=== PATIENT | female | born 1950 | race Caucasian/White ===

== ENCOUNTER → 2017-01-01 16:44 | Outpatient (CLI) | payer MEDICARE, OTHER ==
[2016-03-09 06:46] VITALS: BMI 28.8
[~2017-01-01 16:44] MED LIST: AMITIZA24 MCG PO; CARAFATE1 G/10 ML; CELEBREX200 MG PO; FISH OIL 1,0001 CA1; FOLATE0.4 MG; KLONOPIN1 MG PO; LEVOTHROID75 MCG; NEXIUM40 MG PO; PEPCID20 MG PO; PRAVACHOL40 MG PO; PROBIOTIC; SYNTHROID200 MC1; TREXALL7.5 MG; XANAX1 MG PO; ZOFRAN ODT4 MG/UDTAB; ZOLOFT20 MG/ML PO
== END | disposition home or self-care (01) ==
LOC: D.MAMMO 13:30
DX: Z12.31 Encounter for screening mammogram for malignant neoplasm of breast (principal)

== ENCOUNTER → 2018-12-07 19:31 | Outpatient (CLI) | payer MEDICARE, OTHER ==
[2016-03-09 06:46] VITALS: BMI 28.8
[~2018-12-07 19:31] MED LIST changes: +ACTEMRA INJ; +ALBUTEROL SULF8.5 GM INH; +BAYER CHEWABLE81 MG PO; +BREO ELLIPTA 21 EACH INH; +BYSTOLIC5 MG PO; +CRESTOR20 MG PO; +FLUTICASONE PRO16 GM NASAL; +OMNICEF300 MG PO; +PEPCID AC20 MG PO; -PEPCID20 MG PO; +PLAVIX75 MG PO; +PREDNISONE20 MG PO; +PREDNISONE5 MG PO; +PROBIOTIC250 MG PO; +PULMICORT0.5 MG/21 UPD; +SINGULAIR10 MG PO; +SYNTHROID88 MCG PO; +TESSALON PERLE100 MG PO; +Tessalon Perle PO; +ZITHROMAX250 MG PO
== END | disposition home or self-care (01) ==
LOC: D.MAMMO 14:00
PROVIDERS: ATTEND Family Medicine
DX: Z12.31 Encounter for screening mammogram for malignant neoplasm of breast (principal)

== ENCOUNTER 2018-12-10 09:15 | Outpatient (CLI) | payer MEDICARE, OTHER ==
[~2018-12-10] VITALS: Ht 162.6 cm; Wt 81.8 kg
--- NOTE | ~2018-12-10 | HEMODYNAMI ---
PATIENT:FLORENTIN PANTOJA MEDICAL RECORD: [id number] : 50 LOCATION:D.CAT ADMISSION DATE: 12/10/18 Generatedon:12/10/201812:49 Patient name: FLORENTIN PANTOJA Patient #: [id number] SSN: : 1950 Date of study: 12/10/2018 Page: Of Hemodynamic Procedure Report Patient Data Patient Demographics Procedure consent was obtained First Name: FLORENTIN Gender: Female Last Name: KIT : 1950 [facility] Initial: JACOB Age: 68 year(s) Patient #: [id number] Race: Unknown Additional ID: [id number] Contact details [address]: [address] [place] [address] State: [place] City: [place] Zip code: [address] Admission Admission Data Admission Date: 12/10/2018 Admission Time: 9:15 Admit Source: Other Procedure Procedure Types Cath Procedure Diagnostic Procedure LHC LHC w/Coronaries Sedation Charges Moderate Sedation up to 15 minutes PCI Procedure Coronary Stent Coronary Stent Initial x2 Procedure Description Procedure Date Procedure Date: 12/10/2018 Procedure Start Time: 12:28 Procedure End Time: 12:44 Procedure Staff Name Function Nathaniel Dennison MD Performing Physician Jesenia Camargo RT Monitor Khurram Ny RN Nurse Dayton Hyatt RT Scrub Procedure Data Cath Procedure Fluoroscopy Diagnostic fluoroscopy Total fluoroscopy Time: 5.8 time: 5.8 min min Diagnostic fluoroscopy Total fluoroscopy dose: 867 dose: 867 mGy mGy Contrast Material Contrast Material Type Amount (ml) Isovue 370 178 Entry Location Entry Primary Successful Side Size Upsize Upsize Entry Closure Christianson ccessful Closure Location (Fr) 1 (Fr) 2 (Fr) Remarks Device Remarks Radial Right 6 Fr Mechanical artery Short Compression Estimated blood loss: 5 ml Diagnostic catheters Device Type Used For End Catheter Placement DIAGNOSTIC [place] 110cm 5 Multi-vessel Fr catheter ([id number]) Angiography Procedure Complications No complications Procedure Medications Medication Administration Route Dosage 0.9% NaCl I.V. 100 ml/hr Oxygen etCO2 Nasal cannula 2 l/min Heparin Flush Bag added to field 2 bags (1000units/500ml NS) Lidocaine 2% added to field 20 Radial Cocktail added to field 1 syringe (Verapomil 2mg/Nitro 400mcg/Heparin 1500units) Versed I.V. 2 mg Fentanyl I.V. 100 mcg Versed I.V. 2 mg Fentanyl I.V. 100 mcg Radial Cocktail I.A. 1 syringe (Verapomil 2mg/Nitro 400mcg/Heparin 1500units) Versed I.V. 1 mg Heparin Bolus I.V. 4000 units Integrilin (Bolus I.V. 7.3 ml 2mg/ml) Integrilin (Bolus wasted 2.3 ml 2mg/ml) Plavix P.O. 600 mg Hemodynamics Rest Heart Rate: 83 (bpm) Pressure Samples Time Site Value (mmHg) Purpose Heart Use Rate(bpm) 12:31 LV 91/59,63 Snapshot 96 Snapshots Pre Cath Intra NCS Post Cath Vital Signs Time Heart Resp SPO2 etCO2 NIBP (mmHg) Rhythm Pain Sedation Rate (ipm) (%) (mmHg) Status Level (bpm) 12:13:43 84 20 96 45.7 151/75(107) NSR 0 (11) 10(A) , No pain 12:17:55 79 12 94 32.9 136/77(109) NSR 0 (11) 10(A) , No pain 12:22:05 83 14 96 44.9 127/83(117) NSR 0 (11) 10(A) , No pain 12:26:18 84 12 96 47.2 141/81(110) NSR 0 (11) 10(A) , No pain 12:30:36 89 15 97 46.4 141/82(117) NSR 0 (11) 10(A) , No pain 12:34:46 88 19 93 37.4 120/75(100) NSR 0 (11) 9(A) , No pain 12:38:56 91 18 96 26.2 140/80(113) NSR 0 (11) 9(A) , No pain 12:43:10 99 12 96 29.9 160/99(125) NSR 0 (11) 10(A) , No pain Medications Time Medication Route Dose Verified Delivered Reason Not es Effectiveness by by 12:11:55 0.9% NaCl I.V. 100 Khurram Khurram Per physician ml/hr Anant Ny RN RN 12:12:06 Oxygen etCO2 2 l/min Khurram Khurram for low 02 sats Nasal Lorigan Anant cannula RN RN 12:12:19 Heparin Flush added 2 bags Khurram Khurram used for Bag to Lorigan Lorigan procedure (1000units/500ml field RN RN NS) 12:12:29 Lidocaine 2% added 20ml Khurram Khurram for local to vial Lorigan Lorleticia anesthetic field RN RN 12:12:39 Radial Cocktail added 1 Khurram Khurram used for (Verapomil to syringe Lorigan Lorigan procedure 2mg/Nitro field RN RN 400mcg/Heparin 1500units) 12:27:50 Versed I.V. 2 mg Khurram Khurram for sedation Anant Ny RN RN 12:27:58 Fentanyl I.V. 100 mcg Khurram Khurram for sedation Anant Ny RN RN 12:29:22 Versed I.V. 2 mg Khurram Khurram for sedation Anant Ny RN RN 12:29:27 Fentanyl I.V. 100 mcg Khurram Khurram for sedation Anant Ny RN RN 12:29:58 Radial Cocktail I.A. 1 Khurram Nathaniel for (Verapomil syringe Anant Dennison MD vasodilation 2mg/Nitro RN 400mcg/Heparin 1500units) 12:31:16 Versed I.V. 1 mg Khurram Khurram for sedation Anant Ny RN RN 12:36:51 Heparin Bolus I.V. 4000 Khurram Khurram for units Lorleticia Ny anticoagulation RN RN 12:37:07 Integrilin I.V. 7.3 ml Khurram Khurram for (Bolus 2mg/ml) Anant Ny antiplatelet RN RN therapy 12:37:17 Integrilin wasted 2.3 ml Khurram Khurram to sharp's (Bolus 2mg/ml) Anant Ny RN RN 12:48:16 Plavix P.O. 600 mg Khurram Khurram for Anant Ny antiplatelet RN RN therapy Procedure Log Time Note 11:53:55 Admit Source: Other 11:55:01 Diagnostic Cath status Elective 11:55:03 Dayton Hyatt RT(R) sent for patient. Start room use. 11:55:04 Time tracking: Regular hours (M-F 7:00 - 5:00) 11:55:10 Plan of Care:Hemodynamics will remain stable., Cardiac rhythm will remain stable., Comfort level will be maintained., Respiratory function will remain adequate., Patient/ family verbilizes understanding of procedure., Procedure tolerated without complication., Recovers from procedure without complications.. 12:11:55 0.9% NaCl 100 ml/hr I.V. was administered by Khurram Ny RN; Per physician; 12:12:06 Oxygen 2 l/min etCO2 Nasal cannula was administered by Khurram Ny RN; for low 02 sats; 12:12:09 Patient received from Pre/Post Procedure Room to CCL 1 Alert and oriented. Tansferred to table in Supine position. 12:12:19 Heparin Flush Bag (1000units/500ml NS) 2 bags added to field was administered by Khurram Ny RN; used for procedure; 12:12:22 Warm blankets applied, and brenton hugger turned on for patient comfort. 12:12:22 Correct patient and procedure confirmed by team. 12:12:23 Signed procedure consent form obtained from patient. 12:12:24 ECG and BP/O2 sat monitors applied to patient. 12:12:29 Lidocaine 2% 20ml vial added to field was administered by Khurram Ny RN; for local anesthetic; 12:12:30 Vital chart was started 12:12:31 Baseline sample Acquired. 12:12:36 Rhythm: sinus rhythm 12:12:38 Full Disclosure recording started 12:12:39 Radial Cocktail (Verapomil 2mg/Nitro 400mcg/Heparin 1500units) 1 syringe added to field was administered by Khurram Ny RN; used for procedure; 12:12:47 H&P Date Dictated: 12/10/2018 Within 30 days and on chart., H&P Addendum completed by physician on day of procedure. (MUST COMPLETE FOR ALL OUTPATIENTS). 12:12:49 Pre-procedure instructions explained to patient. 12:12:50 Pre-op teaching completed and patient verbalized understanding. 12:12:51 Family in patients room. 12:12:53 Patient NPO since Midnight. 12:12:55 Is the patient allergic to Iodine/contrast media? No. 12:12:56 Was the patient premedicated? No 12:12:57 Is patient on blood thinner?No 12:12:58 Patient diabetic? No. 12:13:01 Previous problem with sedation/anesthesia? No ? 12:13:02 Snore? Yes 12:13:03 Sleep apnea? Yes 12:13:05 Deviated septum? No 12:13:05 Opens mouth fully? Yes 12:13:06 Sticks out tongue? Yes 12:13:08 Airway obstruction? No ? 12:13:11 Dentures? No ? 12:13:16 Pre procedure: right dorsailis pedis pulse 2+ Normal; easily identifiable; not easily obliterated 12:13:19 Pre procedure: left dorsailis pedis pulse 2+ Normal; easily identifiable; not easily obliterated 12:13:22 Patient pain scale 0/10 \. 12:13:30 IV patent on arrival in left forearm with 0.9% NaCl at [facility]. 12:17:43 Lab results completed and on chart. 12:17:51 Right Radial & Right Groin area was prepped with chlora-prep and draped in sterile fashion 12:17:52 Alarms reviewed by R. N. 12:17:53 Sharps counted by scrub and verified by R.N. 12:19:13 Physician paged 12:23:10 Zero performed for pressure channel P1 12:24:48 Physician arrived 12:24:48 --------ALL STOP TIME OUT------ 12:24:49 Final Timeout: patient, procedure, and site verified with staff and physician. All members of the team are in agreement. 12:24:52 Right Radial & Right Groin site verified by team. 12:25:04 Maximum allowable Isovue 370 dose 300ml. Physician notified. (300ml for normal creatinines. For patients with creatinine of 1.7 or higher multiply weight(kg) x 5 divided by creatinine.) 12:25:08 Fire Safety Assessment: A--An alcohol-based skin anteseptic being used preoperatively., C--Open oxygen or nitrous oxide is being used., D--An ESU, laser, or fiber-optic light is being used. 12:25:12 Physical assessment completed. ASA score P 2 - A patient with mild systemic disease as per Nathaniel Dennison MD. 12:25:17 Sedation plan: IV Moderate Sedation Medication:Versed, Fentanyl 12:25:28 Use device set Radial Dx or PCI 12:25:29 ACIST Syringe (72813) opened to sterile field. 12:25: Medline Cath Pack ([id number]) opened to sterile field. 12:25:30 Bag Decanter (2002) opened to sterile field. 12:25:30 DIAGNOSTIC WIRE .035 260cm J wire (142689) opened to sterile field. 12:25:30 ACIST Hand Control (67333) opened to sterile field. 12:25:31 ACIST Manifold (97969) opened to sterile field. 12:25: Tegaderm 4 x 4 (1626W) opened to sterile field. 12:25:32 MBrace Wrist Support (483716371) opened to sterile field. 12::33 SHEATH 6FR Slender (59-6665) opened to sterile field. 12:27:50 Versed 2 mg I.V. was administered by Khurram Ny RN; for sedation; 12::58 Fentanyl 100 mcg I.V. was administered by Khurram Ny RN; for sedation; 12:28:00 Procedure started. 12::41 Local anesthetic to right radial artery with Lidocaine 2% by Nathaniel Dennison MD.INITIAL ACCESS ONLY 12:29:21 A 6 Fr Short sheath was inserted into the Right Radial artery 12::22 Versed 2 mg I.V. was administered by Khurram Ny RN; for sedation; 12::27 Fentanyl 100 mcg I.V. was administered by Khurram Ny RN; for sedation; 12::58 Radial Cocktail (Verapomil 2mg/Nitro 400mcg/Heparin 1500units) 1 syringe I.A. was administered by Nathaniel Dennison MD; for vasodilation; 12:30:20 A DIAGNOSTIC [place] 110cm 5 Fr catheter (717647) was advanced over the wire and used for Multi-vessel Angiography. 12:30:49 LV hemodynamics recorded. 12:30:50 LV gram done using MARIE 12::52 Injector settings: Ml/sec: 5, Volume: 15, 12:31:14 EF : 60 % 12:31:16 Versed 1 mg I.V. was administered by Khurram Ny RN; for sedation; 12::41 LCA angiography performed. 12::44 Injector settings: Ml/sec: 3, Volume: 6, 12:33:04 RCA angiography performed. 12:33:10 Injector settings: Ml/sec: 3, Volume: 6, 12:33:44 Catheter removed. 12:34:10 GUIDE 6FR XBLAD 3.5 catheter (50548988) opened to sterile field. 12:34:12 [place] IVUS Catheter (04598N) opened to sterile field. 12:34:13 CHOICE PT Extra Support 182cm wire (7706769S7) opened to sterile field. 12:34:13 INFLATOR Merit BasixCompak (VK0302) opened to sterile field. 12:34:21 Proceeding to intervention. 12:34:28 6 Fr xblad 3.5 guide catheter was inserted over the wire 12:34:36 choice pt wire advanced. 12:35:51 Wire advanced across lesion. 12:35:53 IVUS catheter advanced over wire. 12:36:51 Heparin Bolus 4000 units I.V. was administered by Khurram Ny RN; for anticoagulation; 12:37:07 Integrilin (Bolus 2mg/ml) 7.3 ml I.V. was administered by Khurram Ny RN; for antiplatelet therapy; 12:37:17 Integrilin (Bolus 2mg/ml) 2.3 ml wasted was administered by Khurram Ny RN; to sharp's; 12:39:09 IVUS pass to LAD lesion performed. 12:39:10 IVUS catheter removed over wire. 12:39:41 Place stent Inflation Number: 1 A INTEGRITY RX 3.0 x 30 stent ([id number]) was prepped and advanced across the Mid LAD. The stent was deployed at 13 ASAD for 0:10 (min:sec). 12:40:43 Stent catheter was removed intact over wire. 12:40:52 Wire redirected to lcx. 12:42:13 Place stent Inflation Number: 1 A INTEGRITY RX 3.0 x 15 stent ([id number]) was prepped and advanced across the Mid CX. The stent was deployed at 13 ASAD for 0:10 (min:sec). 12:42:42 Stent catheter was removed intact over wire. 12:42:42 Wire removed. 12:42:43 Guide catheter removed. 12:42:47 TR BAND Standard ([id number]) opened to sterile field. 12:43:12 Sheath removed intact; hemostasis achieved with Mechanical Compression to the Right Radial artery. 12:43:13 Procedure ended.(Physican Out) 12:43:49 Fluoroscopy time 05.80 minutes. 12:43:53 Flurop Dose total: 867 12:43:53 Fluoroscopy dose: 867 mGy 12:44:02 Contrast amount:Isovue 370 178ml. 12:44:04 Sharps counted by scrub and verified by R.N. 12:44:06 TR band inflated with 10cc of air. 12:44:08 Insertion/operative site no bleeding no hematoma. 12:44:11 Post right radial artery:stable 12:44:12 Post Procedure Pulses reassessed and unchanged 12:44:15 Post procedure rhythm: unchanged. 12:44:18 Estimated blood loss: 5 ml 12:44:20 Post procedure instruction explained to patient.Patient verbalizes understanding. 12:44:21 Patient needs reinforcement of post procedure teaching. 12:44:34 Procedure type changed to Cath procedure, Diagnostic procedure, LHC, LHC w/Coronaries, Sedation Charges, Moderate Sedation up to 15 minutes, PCI procedure, Coronary Stent, Coronary Stent Initial x2 12:44:34 Procedure and supply charges have been captured, reviewed, submitted and are correct. 12:44:39 Procedure Complication : No complications 12:44:41 Vital chart was stopped 12:44:43 See physician's report for complete and final results. 12:44:46 Report given to Pre/Post Procedure Room. 12:44:49 Patient transfered to Pre/Post Procedure Room with Stretcher. 12:44:51 Procedure ended. 12:44:51 Full Disclosure recording stopped 12:44:59 ACC-PCI Only Patient was given prescriptions, or instructed by Nathaniel Dennison MD to start/continue the following medications upon discharge: Plavix 12:45:00 End room use (Document Last) 12:48:16 Plavix 600 mg P.O. was administered by Khurram Ny RN; for antiplatelet therapy; Intervention Summary Intervention Notes Time ActionType Lesion and Equipment Action# Pressure Duration Attributes Used 12:39:41 Place stent Mid LAD INTEGRITY RX 1 13 00:10 3.0 x 30 stent ([id number]) 12:42:13 Place stent Mid CX INTEGRITY RX 1 13 00:10 3.0 x 15 stent ([id number]) Device Usage Item Name Manufacture Quantity Catalog Number Hospital Part Current Mini mal Lot# / Charge Number Stock Stock Serial# Code ACIST Acist 1 11719 006040 810210 903509 20 Syringe Medical (13885) Systems Inc Medline Cath Medline 1 [id number] 648594 53256 806781 5 Pack ([id number]) Bag Decanter Microtek 1 2001S 866073 01527 459253 5 (2001S) Medical Inc. DIAGNOSTIC St [place] 1 526286 492608 760365 362828 30 WIRE .035 260cm J wire (725843) ACIST Hand Acist 1 79446 107442 198771 605106 5 Control Medical (00529) Systems Inc ACIST Acist 1 46765 191224 351484 561387 5 Manifold Medical (31598) Systems Inc Tegaderm 4 x 3M 1 1626W 946853 242545 535571 5 4 (1626W) MBrace Wrist Advanced 1 140-0250-00 765714 44345 394929 5 Support Vascular (044094787) Dynamics SHEATH 6FR Terumo 1 [id number] 609767 528875 209678 5 Slender (80-1060) DIAGNOSTIC Terumo 1 40-1623 971368 889407 389864 5 [place] 110cm 5 Fr catheter (632195) GUIDE 6FR Cardinal 1 [id number] 650821 573537 199101 10 XBLAD 3.5 Health catheter (21962722) [place] 1 65217Y 388688 810148 159012 8 [place] IVUS Catheter (51343W) CHOICE PT [place] 1 [id number] 616891 829712 177167 5 Extra Scientific Support 182cm wire (2390613Z8) INFLATOR Merit 1 TE6996 502495 172372 245082 15 Cortexa Medical BasixCompak (SX2384) INTEGRITY RX Medtronic 1 [id number] 223406 517844 168867 5 [id number] 3.0 x 30 stent ([id number]) INTEGRITY RX Medtronic 1 [id number] 961239 783077 208346 5 [id number] 3.0 x 15 stent ([id number]) TR BAND Terumo 1 [id number] 809977 838515 234417 40 Standard ([id number]) Signature Audit [place] Stage Time Signature Unsigned Intra-Procedure 12/10/2018 Jesenia Camargo 12:49:55 PM RT(R) Signatures Monitor : Jesenia Camargo RT Signature : Date : Time : [id number] [place] [address]
[~2018-12-10 09:15] MED LIST changes: -ACTEMRA INJ; -ALBUTEROL SULF8.5 GM INH; -BAYER CHEWABLE81 MG PO; -BREO ELLIPTA 21 EACH INH; -BYSTOLIC5 MG PO; -CRESTOR20 MG PO; -FLUTICASONE PRO16 GM NASAL; -OMNICEF300 MG PO; -PLAVIX75 MG PO; -PREDNISONE20 MG PO; -PREDNISONE5 MG PO; -PROBIOTIC250 MG PO; -PULMICORT0.5 MG/21 UPD; -SINGULAIR10 MG PO; -SYNTHROID88 MCG PO; -TESSALON PERLE100 MG PO; -Tessalon Perle PO; -ZITHROMAX250 MG PO
[2018-12-10] MEDS ORDERED: SYNTHROID88 MCG PO (09:37)
[2018-12-10] MEDS ORDERED: CRESTOR20 MG PO (09:38)
[2018-12-10] MEDS ORDERED: PREDNISONE5 MG PO (09:39)
[2018-12-10] MEDS ORDERED: ACTEMRA INJ (09:42)
[2018-12-10] MEDS ORDERED: PROBIOTIC250 MG PO (09:43)
[2018-12-10 09:46] VITALS: BP 189/90; Ht 162.6 cm; Wt 81.8 kg
[2018-12-10 10:11] LABS: CALC OSMOLALITY 289 mosm/kg (275-300); CALCIUM 8.7 mg/dL (8.5-10.1); CARBON DIOXIDE 28.9 mmol/L (21.0-32.0); CHLORIDE - SERUM 106 mmol/L (98-107); CREATININE - SERUM 0.7 mg/dL (0.6-1.3); GLUCOSE 159 mg/dL (74-106); POTASSIUM - SERUM 3.9 mmol/L (3.5-5.1); SODIUM 143 mmol/L (136-145); UREA NITROGEN 17 mg/dL (7-18); eGFR NON AFRICAN AMERICAN 88 mL/min (90-120)
[2018-12-10 10:13] LABS: BASOPHILS 0.2 % (0-2); EOSINOPHILS 1.5 % (0-7); HEMATOCRIT 43.5 % (36.0-48.0); HEMOGLOBIN 14.7 g/dL (12-16); IMMATURE GRANULOCYTES 0.2 % (0-5); LYMPHOCYTES 12.9 % (15-50); MCH 29.8 pg (26.0-34.0); MCHC 33.8 g/dL (31.0-37.0); MCV 88.2 fL (80.0-100.0); MEAN PLATELET VOLUME 9.8 fL (7.4-10.4); MONOCYTES 3.1 % (2-11); NEUTROPHILS 82.1 % (40-80); RBC 4.93 10x6/uL (4.00-5.40); RDW 14.4 % (11.5-14.5)
[2018-12-10 10:16] LABS: PLATELET COUNT 126 10x3/uL (130-400)
--- NOTE | 2018-12-10 13:26 | NUR ---
PT SLEEPING INTERMITTENTLY, HAS RECEIVED CLONIDINE FOR ELEVATED BP, DECLINES NORCO FOR HEADACHE. DENIES ANY CHANGE IN CHEST DISCOMFORT. TR BAND IS CDI, FINGERS WARM AND CAP REFILL IS BRISK. FAMILY AT BEDSIDE.
[2018-12-10] MEDS ORDERED: BAYER CHEWABLE81 MG PO (13:34)
[2018-12-10] MEDS ORDERED: PLAVIX75 MG PO (13:34)
--- NOTE | 2018-12-10 13:47 | NUR ---
PT AWAKE, STATES PAIN DECREASED. BP IS 150/75, HR IS 92. RESP WITH EASE ON O2 AT 2LPM VIA NC. TR BAND IS CDI, FINGERS WARM AND CAP REFILL IS BRISK. PT REQUESTS SANDWICH AND THIS SERVED. YUNG PO FLUIDS WITH NO NAUSEA.
--- NOTE | 2018-12-10 14:08 | NUR ---
PT SITTING UP IN BED, YUNG SANDWICH AND STATES PAIN RESOLVED. TR BAND IS CDI, FINGERS WARM AND CAP REFILL IS BRISK. VSS, CALL LIGHT IN REACH, FAMILY AT BEDSIDE.
--- NOTE | 2018-12-10 14:40 | NUR ---
PT DENIES ANY C/O. TR BAND IS CDI TO RIGHT WRIST, CAP REFILL IS BRISK, FINGERS WARM. PT DENIES ANY NV DEFICIT. NSR, DENIES ANY C/O CHEST PAIN. IS SLEEPING INTERMITTENTLY, RESP WITH EASE.
--- NOTE | 2018-12-10 15:08 | NUR ---
PT SLEEPING, TR BAND CDI, FINGERS WARM AND CAP REFILL IS BRISK. FAMILY AT BEDSIDE.
--- NOTE | 2018-12-10 15:13 | OP ---
PATIENT NAME: FLORENTIN PANTOJA MEDICAL RECORD: [id number] :[birth year] LOCATION:D.CAT ADMISSION DATE: SURGEON: MELONY SINCLAIR MD DATE OF OPERATION: 12/10/2018 PROCEDURES: 1. PTCA stent left circumflex. 2. PTCA stent LAD. 3. Intravascular ultrasound. 4. Left heart catheterization. 5. Selective coronary angiography. 6. Left ventriculogram. INDICATION: Angina and coronary artery disease. PROCEDURE IN DETAIL: After informed consent was obtained and after a detailed description of risks, benefits as well as alternative therapies, the patient elected to proceed with angiogram and angioplasty. The right radial area was prepped and draped in normal sterile fashion. Right radial artery was cannulated via modified Seldinger technique with placement of 6-Bulgarian sheath. All catheters exchanged through this sheath. FINDINGS: The left ventriculogram was performed in standard 30-degree MARIE view reveals preserved cardiac wall motion, ejection fraction estimated at 55% to 60%. SELECTIVE CORONARY ANGIOGRAPHY: 1. Left main showed no significant angiographic disease. 2. Left anterior descending has greater than 70% stenosis confirmed by intravascular ultrasound to the mid vessel. 3. Left circumflex has 80% stenosis in the mid vessel. 4. Right coronary artery has moderate irregularities, but no flow-limiting stenosis. PTCA STENT OF THE LAD: The stent used was a 3.0 x 30 mm Integrity. Result was 0% residual stenosis. PTCA STENT OF THE LEFT CIRCUMFLEX: The stent used 3.0 x 15 mm Integrity. Result was 0% residual stenosis. OVERALL IMPRESSION: Successful percutaneous transluminal coronary angioplasty stent of the left anterior descending and left circumflex, both going from 80% initial stenosis to 0% residual. TRANSINT:[id number] Voice Confirmation ID: [id number] DOCUMENT ID: [id number] MELONY SINCLAIR MD at 1513 CC: [id number] DICTATION DATE: 12/10/18 1251 BOATBUILDER APPRENTICE WOOD: 12/10/18 1343 REG [facility] [address] [place] [address]
--- NOTE | 2018-12-10 15:29 | NUR ---
ASSISTED PT ONTO THE BEDPAN, PT VOIDED QS. TR BAND IS CDI, FINGERS WARM AND CAP REFILL IS BRISK, FAMILY AT BEDSIDE,. VSS.
--- NOTE | 2018-12-10 16:14 | NUR ---
WEANED 3 CC OF AIR FROM TR BAND WITH NO BLEEDING NOTED.
--- NOTE | 2018-12-10 16:30 | NUR ---
4 CC OF AIR WEANED FROM TR BAND WITH NO BLEEDING NOTED. FINGERS WARM AND CAP REFILL IS BRISK. DENIES ANY NV DEFICIT TO HAND.
--- NOTE | 2018-12-10 16:54 | NUR ---
ALL REMAINING AIR HAS BEEN WEANED FROM TR BAND WITH NO BLEEDING NOTED. FINGERS WARM AND CAP REFILL IS BRISK. PT IS ALERT AND DENIES ANY C/O. DC INSTRUCTIONS REVIEWED WITH PT AND WHO VERBALIZE UNDERSTANDING. BOTH VERBALIZE UNDERSTANDING TO START PLAVIX TOMORROW AND PRESCRIPTION TO PATIENT. PT DRESSING FOR DC TO HOME WITH ASSIST.
--- NOTE | 2018-12-10 17:07 | NUR ---
PT HAS DRESSED FOR DC TO HOME WITH ASSIST. 2X2 AND TEGADERM ARE CDI TO RIGHT WRIST, NO BLEEDING OR HEMATOMA NOTED. FINGERS WARM AND PULSES PALPABLE. PT IS ALERT AND DENIES ANY C/O. PT ESCORTED TO PRIVATE AUTO VIA WC BY NURSE WITH DRIVING HER HOME.
== END 2018-12-10 17:05 | disposition home or self-care (01) ==
LOC: D.CATH 09:15
PROVIDERS: ATTEND Internal Medicine Interventional Cardiology
DX: I25.119 Atherosclerotic heart disease of native coronary artery with unspecified angina pectoris (principal); Z01.812 Encounter for preprocedural laboratory examination

== ENCOUNTER 2018-12-20 21:36 | Inpatient (IN) | payer MEDICARE, OTHER ==
[~2018-12-20] VITALS: Ht 162.6 cm; Wt 82.3 kg
--- NOTE | ~2018-12-20 | EC ---
PATIENT:FLORENTIN PANTOJA DATE OF SERVICE: 12/21/18 SEX: F MEDICAL RECORD: [id number] DATE OF : [birth year] LOCATION:D.M3 D.120 AGE OF PATIENT: 68 ADMISSION DATE: 12/21/18 REFERRING PHYSICIAN: INTERPRETING PHYSICIAN: MELONY DENNISON MD ECHOCARDIOGRAM REPORT ECHO CHARGES 4 ECHO COMPLETE Date: 12/22/18 CLINICAL DIAGNOSIS: SOB ECHOCARDIOGRAPHIC MEASUREMENTS (adult normal given) AC root (d.<3.7cm) 3.0 cm LV Septum d (<1.2 cm> 1.5 cm Valve Excursion 2.0 cm LV Septum (systole) 2.2 cm Left Atria (s.<4.0cm> 3.6 cm LVPW d(<1.2cm) 1.4 cm RV (d.<2.3cm) 2.4 cm LVPW (sytole) 1.8 cm LV diastole(<5.6CM) 4.1 cm MV E-F(>70mm/sec) cm LV systole 1.8 cm LVOT Diameter 1.9 cm MV exc.(>10mm) cm Est.ejection fraction (50-75%) % DOPPLER: LVIT cm/sec A 115 cm/sec E 126 cm/sec LA cm/sec RVSP 25.1 mmHg LVOT 139 cm/sec AOP1/2T m/s Asc. Ao 147 cm/sec RVOT 78.0 cm/sec RA cm/sec PA 95.0 cm/sec AV Gradient Peak 8.7 mmHg AV Mean 3.9 mmHg AV Area 2.4 cm MV Gradient Peak 7.3 mmHg MV Mean 3.1 mmHg MV Area cm COMMENTS: Turn Down Man: 1 TANIKA MCCLELLANDOE Fraud Analyst: 1 Dr. Dennison TAPE# PACS Pericardial Effusion N DATE OF SERVICE: 12/22/2018 PROCEDURE: Echocardiogram. FINDINGS: 1. Left ventricular chamber size is within normal limits. Left ventricular systolic function is normal. Overall ejection fraction estimated at 65%. 2. Left atrium, right atrium, and right ventricle chamber sizes are within normal limits. 3. Valvular structures have normal structure and motion. ECHOCARDIOGRAM REPORT [id number] FLORENTIN PANTOJA 4. Doppler interrogation reveals no significant valvular insufficiency or stenosis. Pulmonary systolic pressure is estimated at 25 mmHg. 5. No evidence of pericardial effusion or left ventricular thrombus. TRANSINT:[id number] Voice Confirmation ID: [id number] DOCUMENT ID: [id number] MELONY DENNISON MD CC: [id number] DICTATION DATE: 12/23/18843 GAS LINE INSTALLER SUPERVISOR: 12/23/18 09 ADM IN [address] [place] [address]
--- NOTE | ~2018-12-20 | CN ---
PATIENT NAME:FLORENTIN CLARK MEDICAL RECORD: [id number] : 50 LOCATION:D.M3 D.1201 ADMIT DATE: 12/21/18 ACCOUNT: [id number] CONSULTING PHYSICIAN: MELONY SINCLAIR MD REFERRING PHYSICIAN: [place] MD DATE OF CONSULTATION: 12/21/2018 DIAGNOSES. 1. Elevated troponin. 2. Coronary artery disease. 3. Previous PTCA stent. 4. Shortness of breath, dyspnea on exertion. 5. Pneumonia. 6. Hypertension. 7. Tachycardia. 8. Hyperlipidemia. HISTORY OF PRESENT ILLNESS: Mrs. Clark presents with shortness of breath and dyspnea on exertion, diagnosed with pneumonia. Troponin is mildly elevated. Two weeks ago, she did undergo PTCA stent of LAD and circumflex. She has had no recurrent anginal symptomatology. Her EKG is with no ST-T changes. She is quite tachycardic with heart rates in the 100-110 range. This is sinus tachycardia. Her systolic blood pressures in the 130 range. She is not on any AV blocking medications. PHYSICAL EXAMINATION: GENERAL APPEARANCE: Well-nourished, well-developed, appears stated age. Level of distress, comfortable. PSYCHIATRIC: Mental status, alert, normal affect. Orientation, oriented to time, place and person. EYES: Lids and conjunctiva, noninjected. No discharge, no pallor. ENT: Lips, teeth, gums, normal dentition. Oropharynx, no cyanosis, no pallor. NECK: Carotid arteries, bilateral normal upstroke, no bruits, no thrills. JUGULAR VEINS: No jugular venous pressure or distention. CERVICAL LYMPH NODES: Nontender, nonenlarged. THYROID: Not enlarged. Nontender. No nodules. LUNGS: Respiratory effort, unlabored. CHEST: Normal curvature. No thoracic deformity. No chest wall tenderness. Percussion, resonant. Auscultation, clear. No wheezes, no rales, no rhonchi. CARDIOVASCULAR: Precordial exam, nondisplaced. No heaves or pericardial thrills. Rate and rhythm, regular. Heart sounds, normal S1, normal S2. No S3, no gallop, no rub. Systolic murmur, not heard. Diastolic murmur, not heard. EXTREMITIES: No cyanosis, no edema. Peripheral pulses, full and equal in all extremities, except as noted. No bruits appreciated. ABDOMEN: Soft, nondistended. Normal aorta. No bruit. Nontender. No masses. Liver, nontender, no hepatomegaly. Spleen, nontender, no splenomegaly. MUSCULOSKELETAL: No joint tenderness. No joint swelling. No erythema. NEUROLOGICAL: Normal gait, normal strength, normal tone. SKIN: Warm and dry. OVERALL IMPRESSION: Elevated troponin secondary to demand ischemia from the tachycardia and shortness of breath. We will start Bystolic 5 mg b.i.d. No other cardiac workup treatment is necessary. TRANSINT:[id number] Voice Confirmation ID: [id number] DOCUMENT ID: [id number] CONSULT REPORT [id number] FLORENTIN CLARK JEFFREY MD CC: [id number] DICTATION DATE: 12/21/18 1545 CYLINDER PRESS OPERATOR HELPER: 12/21/18 1655 ADM IN [place] [id number] [place] [id number]
[~2018-12-20 21:36] MED LIST changes: +ACTEMRA INJ; +BAYER CHEWABLE81 MG PO; +CRESTOR20 MG PO; +PLAVIX75 MG PO; +PREDNISONE5 MG PO; +PROBIOTIC250 MG PO; +SYNTHROID88 MCG PO
--- NOTE | 2018-12-20 23:11 | NUR ---
PT O2 SAT 87% ON RA, PT PLACED ON 2L. O2 SAT 97% ON 2L.
[2018-12-20 23:21] LABS: BASOPHILS 0.2 % (0-2); HEMATOCRIT 40.1 % (36.0-48.0); HEMOGLOBIN 13.8 g/dL (12-16); IMMATURE GRANULOCYTES 0.4 % (0-5); INR 0.96 (0.85-1.17); LYMPHOCYTES 10.6 % (15-50); MCH 29.9 pg (26.0-34.0); MCHC 34.4 g/dL (31.0-37.0); MEAN PLATELET VOLUME 9.7 fL (7.4-10.4); MONOCYTES 3.8 % (2-11); PROTIME 12.3 SECONDS (11.6-15.0); RBC 4.61 10x6/uL (4.00-5.40); RDW 14.9 % (11.5-14.5); WBC 8.1 10x3/uL (4.8-10.8)
[2018-12-20 23:24] LABS: ALBUMIN 3.7 g/dL (3.4-5.0); ALKALINE PHOSPHATASE 69 U/L (46-116); ALT (SGPT) 16 U/L (10-68); BILIRUBIN - TOTAL 2.39 mg/dL (0.2-1.3); CALC OSMOLALITY 284 mosm/kg (275-300); CALCIUM 8.5 mg/dL (8.5-10.1); CARBON DIOXIDE 29.3 mmol/L (21.0-32.0); CHLORIDE - SERUM 104 mmol/L (98-107); CREATININE - SERUM 0.7 mg/dL (0.6-1.3); GLUCOSE 139 mg/dL (74-106); POTASSIUM - SERUM 3.4 mmol/L (3.5-5.1); PROTEIN - SERUM 6.8 g/dL (6.4-8.2); SODIUM 142 mmol/L (136-145); UREA NITROGEN 12 mg/dL (7-18); eGFR NON AFRICAN AMERICAN 88 mL/min (90-120)
[2018-12-20 23:25] LABS: PLATELET COUNT 93 10x3/uL (130-400)
[2018-12-20 23:39] LABS: AMYLASE - SERUM 47 U/L (25-115); CKMB 1.3 U/L (0.0-3.6); CREATINE KINASE 80 UL (21-215); LIPASE 120 U/L (73-393); PRO BNP 62 pg/mL (0-125)
[2018-12-20 23:43] LABS: PLATELET ESTIMATE DECREASED
[2018-12-20 23:51] LABS: TROPONIN-I 0.072 ng/mL (0.000-0.060)
[2018-12-21] VITALS (12 sets, daily range): BP systolic 124–185; BP diastolic 55–83; Ht 162.6 cm; Wt 82.3 kg
--- NOTE | 2018-12-21 00:39 | NUR ---
PT RESTING ON BED, FAMILY AT BEDSIDE. O2 SAT 96% ON 2L.
--- NOTE | 2018-12-21 01:05 | NUR ---
PT ASSISTED WITH BEDPAN. PT URINATED APPROX 250ML OF CLEAR, YELLOW URINE. PT SPOUSE AT BEDSIDE.
--- NOTE | 2018-12-21 02:20 | NUR ---
PT PROVIDED SANDWICH BOX PER REQUEST.
--- NOTE | 2018-12-21 02:26 | NUR ---
PT C/O NAUSEA. PRN ZOFRAN ADMINISTERED.
--- NOTE | 2018-12-21 03:25 | NUR ---
ZITHROMAX INFUSION COMPLETE AT THIS TIME. PT RESTING ON BED.
--- NOTE | 2018-12-21 04:00 | NUR ---
PT SLEEPING ON BED. VS WNL.
--- NOTE | 2018-12-21 05:00 | NUR ---
PT SLEEPING ON BED, NO S/S OF ACUTE DISTRESS NOTED. VS WNL
--- NOTE | 2018-12-21 06:20 | NUR ---
PT SLEEPING ON BED, LIGHTS LOW. SIDERAILS UP X2. NO S/S OF ACUTE DISTRESS NOTED.
--- NOTE | 2018-12-21 07:05 | NUR ---
[place] BS FROM FROM RYLAN RYAN. PT RESTING IN BED. AROUSES EASILY WHEN NAME CALLED. A/OX3. SKIN W/D/P. RESP EVEN/UNLABORED. NAD NOTED. VSS. EXPL POC TO BED: JUST BARRINGTON BED ASSSINGMENT THEN WILL TAKE TO ROOM. VERB UNDER.
--- NOTE | 2018-12-21 07:38 | NUR ---
SBAR REPORT CALLED TO RYLAN SELF
--- NOTE | 2018-12-21 09:16 | NUR ---
PT ARRIVED TO UNIT TO ROOM 1201 FROM ER, ORIATATED TO ROOM CL IN REACH
--- NOTE | 2018-12-21 15:30 | NUR ---
D DIMER IS 9.93 CALLED AND NOTIFED WILBER GRAMAJO
[2018-12-21 16:04] LABS: CKMB 1.3 U/L (0.0-3.6); CREATINE KINASE 64 UL (21-215); TROPONIN-I 0.025 ng/mL (0.000-0.060)
--- NOTE | 2018-12-21 17:06 | NUR ---
THIS NURSE AGREES WITH THE SURGICAL APPLIANCE FITTER CHARTING
[2018-12-21 19:04] LABS: APPEARANCE CLEAR (CLEAR); COLOR YELLOW (YELLOW); GLUCOSE 1000 mg/dL (NEGATIVE); NITRITE NEGATIVE (NEGATIVE); PROTEIN NEGATIVE (NEGATIVE)
[2018-12-21 19:05] LABS: BILIRUBIN NEGATIVE (NEGATIVE); KETONE NEGATIVE (NEGATIVE); UROBILINOGEN NORMAL (NORMAL)
[2018-12-21 19:33] LABS: CREATINE KINASE 69 UL (21-215); TROPONIN-I 0.027 ng/mL (0.000-0.060)
--- NOTE | 2018-12-21 20:00 | NUR ---
PATIENT RECEIVED SITTING UP IN BED. VITAL SIGNS & ASSESSMENT DONE. NO C/O PAIN OR DISTRESS AT THIS TIME. BEDSIDE TABLE & CALL LIGHT WITHIN REACH. WILL CONTINUE TO MONITOR.
[2018-12-22] VITALS (7 sets, daily range): BP systolic 124–162; BP diastolic 52–86
[2018-12-22 02:38] LABS: CKMB 1.3 U/L (0.0-3.6); CREATINE KINASE 65 UL (21-215); TROPONIN-I 0.036 ng/mL (0.000-0.060)
[2018-12-22 07:45] LABS: BASOPHILS 0.1 % (0-2); EOSINOPHILS 0 % (0-7); HEMOGLOBIN 12.4 g/dL (12-16); IMMATURE GRANULOCYTES 0.4 % (0-5); LYMPHOCYTES 7.7 % (15-50); MCHC 34.4 g/dL (31.0-37.0); MEAN PLATELET VOLUME 9.9 fL (7.4-10.4); MONOCYTES 3.5 % (2-11); NEUTROPHILS 88.3 % (40-80); PLATELET COUNT 95 10x3/uL (130-400); RBC 4.14 10x6/uL (4.00-5.40); RDW 14.7 % (11.5-14.5)
--- NOTE | 2018-12-22 07:45 | NUR ---
RESUMING PT CARE, PT LAYING IN BED WITH EYES CLOSED AND RESPIRATIONS EVEN AND UNLABORED. CALL LIGHT IN REACH, WILL CONTINUE TO MONITOR AND FOLLOW PLAN OF CARE.
[2018-12-22 07:46] LABS: ALBUMIN 3.5 g/dL (3.4-5.0); ALKALINE PHOSPHATASE 60 U/L (46-116); ALT (SGPT) 15 U/L (10-68); BILIRUBIN - DIRECT 0.22 mg/dL (0.00-0.30); CALC OSMOLALITY 291 mosm/kg (275-300); CALCIUM 8.7 mg/dL (8.5-10.1); CARBON DIOXIDE 25.2 mmol/L (21.0-32.0); CHLORIDE - SERUM 106 mmol/L (98-107); CREATININE - SERUM 0.7 mg/dL (0.6-1.3); GLUCOSE 186 mg/dL (74-106); POTASSIUM - SERUM 3.7 mmol/L (3.5-5.1); PROTEIN - SERUM 6.7 g/dL (6.4-8.2); SODIUM 144 mmol/L (136-145); UREA NITROGEN 13 mg/dL (7-18); eGFR NON AFRICAN AMERICAN 88 mL/min (90-120)
[2018-12-22 08:06] LABS: WBC 14.1 10x3/uL (4.8-10.8)
--- NOTE | 2018-12-22 10:16 | NUR ---
PT STATES SHE IS SUPPOSED TO HAVE A UPPER GI TODAY, THERE ARE NO ORDERS FROM GI OR NURSING MESSAGE. UPON READING DR HUTTON'S NOTE, SHE STATES THAT PT WILL HAVE A UPPER GI TODAY. I CALLED THE OFFICE AND AM WAITING FOR A CALL BACK FOR FURTHER ORDERS.
--- NOTE | 2018-12-22 11:01 | NUR ---
NEW ORDER FROM DR HUTTON, KEEP PT NPO UNTIL AFTER 1400. PT NOTIFIED, SIGN ON DOOR. ORDER NOTED.
--- NOTE | 2018-12-22 15:24 | NUR ---
PER RESPIRATORY, PT IS REFUSING NEB TREATMENTS.
--- NOTE | 2018-12-22 16:58 | MORECARE ---
CASE MANAGEMENT DISCHARGE SUMMARY PATIENT: FLORENTIN PANTOJA JO UNIT: [id number] ADM DATE: 12/21/18 AGE: 68 : 50 SEX: F ROOM/BED: D.1201 AUTHOR: EZRA DE PHYSICIAN: REFERRING PHYSICIAN: [place] MD DATE OF SERVICE: 12/22/18 Discharge Plan Patient Name: FLORENTIN PANTOJA Facility: [facility]:[place] : 1950 Planned Disposition: Home Anticipated Discharge Date: Discharge Date: Expected LOS: Initial Reviewer: [email or web address] Initial Review Date: 12/22/2018 Generated: 12/22/18 5:58 pm Comments DCP- Discharge Planning Updated by [email or web address]: Cynthia Villarreal on 12/22/18 3:[address] Patient Name: FLORENTIN PANTOJA Admission Status: ER Accout number: [id number] Admission Date: 12-21-2018 : 1950 Admission Diagnosis: Attending: RED LAKE Current LOS: 1 Anticipated DC Date: Planned Disposition: Home Primary Insurance: MEDICARE A & B Discharge Planning Comments: SPOKE TO PT ABOUT DC PLANS AND NEEDS. PT STATES LIVES WITH , HAS NO DME OR MEDICAL NEEDS TO GO HOME. HOME IS SAFE TO RETURN TO. USES DR. LADD PCP AND [facility] FOR MEDICATIONS. Yarn Winder: Cynthia Villarreal DCPIA - Discharge Planning Initial Assessment Updated by [email or web address]: Cynthia Villarreal on 12/22/18 4:56 pm * Is the patient Alert and Oriented? Yes * How many steps to enter\exit or inside your home? * PCP DR LADD * Pharmacy [facility] * Preadmission Environment Home with Family * Equipment None * List name and contact numbers for known caregivers / representatives who currently or will assist patient after discharge: KEEGAN PANTOJA [phone] * Verbal permission to speak to the caregivers and representatives has been obtained from the patient. Yes * Additional services required to return to the preadmission environment? No * Can the patient safely return to the preadmission environment? Yes * Has this patient been hospitalized within the prior 30 days at any hospital? No Patient Name: FLORENTIN PANTOJA Page [id number] at 1658 All edits/amendments must be made on the electronic document DICTATION DATE: 12/22/181656 ADJUSTMENT EXAMINER: DEN 12/22/181656 RPT#: [id number] DC DATE: STATUS: ADM IN [facility] [address] [place] [address] END OF REPORT
--- NOTE | 2018-12-22 19:55 | NUR ---
SITTING UP ON SIDE OF BED. ALERT AND ORIENTED X4. RESP IRREG. NOT WEARING O2. STATES SHE DOESNT NEED IT. BREATH SOUND DIMINISHED IN RUL. EXP WHEEZES NOTED TO LT LOBES. NONPROD COUGH. DENIES PAIN. BRUISES NOTED TO BUE. TELEMETRY SHOWS SR WITH RATE OF 83. NO EDEMA NOTED. SALINE LOCK NOTED TO RT AC. AMBULATORY. NO DISTRESS. SR ELEVATED X2. CL IN REACH.
[2018-12-23 00:02] VITALS: BP 145/71
--- NOTE | 2018-12-23 01:23 | NUR ---
HAS RESTED WELL SO FAR TONIGHT. NO DISTRESS. SR ELEVATED X2. CL IN REACH.
[2018-12-23 03:36] VITALS: BP 130/70
--- NOTE | 2018-12-23 08:00 | NUR ---
RESUMING PT CARE, PT SITTING UP IN BED ALERT AND ORIENTED X4, CALL LIGHT IN REACH. WILL CONTINUE TO MONITOR AND FOLLOW PLAN OF CARE.
[2018-12-23 08:22] VITALS: BP 156/77
[2018-12-23 08:57] LABS: BASOPHILS 0.2 % (0-2); EOSINOPHILS 0.5 % (0-7); HEMATOCRIT 35.9 % (36.0-48.0); HEMOGLOBIN 12.2 g/dL (12-16); IMMATURE GRANULOCYTES 0.4 % (0-5); LYMPHOCYTES 21.2 % (15-50); MCH 29.8 pg (26.0-34.0); MCV 87.6 fL (80.0-100.0); MEAN PLATELET VOLUME 9.5 fL (7.4-10.4); MONOCYTES 4.3 % (2-11); NEUTROPHILS 73.4 % (40-80); PLATELET COUNT 94 10x3/uL (130-400); RDW 15.1 % (11.5-14.5); WBC 11.6 10x3/uL (4.8-10.8)
[2018-12-23 09:07] LABS: ANION GAP 12.1 mmol/L (8-16); CALCIUM 8.4 mg/dL (8.5-10.1); CARBON DIOXIDE 26.9 mmol/L (21.0-32.0); CREATININE - SERUM 0.9 mg/dL (0.6-1.3)
[2018-12-23 10:20] LABS: PLATELET ESTIMATE DECREASED
[2018-12-23] MEDS ORDERED: OMNICEF300 MG PO (10:25)
[2018-12-23] MEDS ORDERED: ZITHROMAX250 MG PO (10:25)
[2018-12-23] MEDS ORDERED: Tessalon Perle PO (10:26)
[2018-12-23] MEDS ORDERED: BYSTOLIC5 MG PO (10:26)
[2018-12-23] MEDS ORDERED: TESSALON PERLE100 MG PO (10:27)
[2018-12-23] MEDS ORDERED: PREDNISONE20 MG PO (10:28)
[2018-12-23] MEDS ORDERED: NEXIUM40 MG PO (10:28)
[2018-12-23] MEDS ORDERED: SINGULAIR10 MG PO (10:29)
[2018-12-23] MEDS ORDERED: PULMICORT0.5 MG/21 UPD (10:30)
[2018-12-23] MEDS ORDERED: FLUTICASONE PRO16 GM NASAL (10:30)
[2018-12-23] MEDS ORDERED: ALBUTEROL SULF8.5 GM INH (10:31)
[2018-12-23] MEDS ORDERED: BREO ELLIPTA 21 EACH INH (10:31)
[2018-12-23 11:13] LABS: ANA REFLEX - DIRECT Negative (Negative)
[2018-12-23 11:45] VITALS: BP 134/60
--- NOTE | 2018-12-23 12:18 | MORECARE ---
CASE MANAGEMENT DISCHARGE SUMMARY PATIENT: FLORENTIN PANTOJA UNIT: [id number] ADM DATE: 12/21/18 AGE: 68 : 50 SEX: F ROOM/BED: D.1201 AUTHOR: EZRA DE PHYSICIAN: REFERRING PHYSICIAN: [place] MD DATE OF SERVICE: 12/23/18 Discharge Plan Patient Name: FLORENTIN PANTOJA Facility: [facility]:[place] : 1950 Planned Disposition: Home Anticipated Discharge Date: Discharge Date: Expected LOS: Initial Reviewer: MARY Initial Review Date: 12/22/2018 Generated: 12/23/18 1:18 pm Comments DCP- Discharge Planning Updated by [id number]: Cynthia Villarreal on 12/23/18 11:[address] Patient Name: FLORENTIN PANTOJA Admission Status: ER Accout number: [id number] Admission Date: 12-21-2018 : 1950 Admission Diagnosis:SHORTNESS OF BREATH Attending: RED [place]KE Current LOS: 2 Anticipated DC Date: Planned Disposition: Home Primary Insurance: MEDICARE A & B Discharge Planning Comments: Spoke to pt about DC today and medications being sent home. Pt has order for Updrafts with machine. Pt uses [employer] and signed FABIO form to send Nebulizer order to [facility]. IMM served. Family will be picking up. Excavating Machine Operator: Cynthia Villarreal DCP- Discharge Planning Updated by [id number]: Cynthia Villarreal on 12/22/18 3:[address] Patient Name: FLORENTIN PANTOJA Admission Status: ER Accout number: [id number] Admission Date: 12-21-2018 : 1950 Admission Diagnosis: Attending: [place]KE Current LOS: 1 Anticipated DC Date: Planned Disposition: Home Primary Insurance: MEDICARE A & B Discharge Planning Comments: SPOKE TO PT ABOUT DC PLANS AND NEEDS. PT STATES LIVES WITH , HAS NO DME OR MEDICAL NEEDS TO GO HOME. HOME IS SAFE TO RETURN TO. USES DR. LADD PCP AND [facility] FOR MEDICATIONS. Excavating Machine Operator: Cynthia Villarreal DCPIA - Discharge Planning Initial Assessment Updated by [email or web address]: Cynthia Villarreal on 12/22/18 4:56 pm * Is the patient Alert and Oriented? Yes * How many steps to enter\exit or inside your home? * PCP DR LADD * Pharmacy [facility] * Preadmission Environment Home with Family * Equipment None * List name and contact numbers for known caregivers / representatives who currently or will assist patient after discharge: KEEGAN PANTOJA [phone] * Verbal permission to speak to the caregivers and representatives has been obtained from the patient. Yes * Additional services required to return to the preadmission environment? No * Can the patient safely return to the preadmission environment? Yes * Has this patient been hospitalized within the prior 30 days at any hospital? No Last DP export: 12/22/18 3:58 p Patient Name: FLORENTIN PANTOJA Page 30579 at 1218 All edits/amendments must be made on the electronic document DICTATION DATE: 12/23/181216 CLINICAL ABSTRACTOR: DEN 12/23/181216 RPT#: [id number] DC DATE: STATUS: ADM IN [facility] [address] [place] [address] END OF REPORT
--- NOTE | 2018-12-23 12:41 | MORECARE ---
CASE MANAGEMENT DISCHARGE SUMMARY PATIENT: FLORENTIN PANTOJA UNIT: [id number] ADM DATE: 12/21/18 AGE: 68 : 50 SEX: F ROOM/BED: D.1201 AUTHOR: EZRA DE PHYSICIAN: REFERRING PHYSICIAN: [place] MD DATE OF SERVICE: 12/23/18 Discharge Plan Patient Name: FLORENTIN PANTOJA Facility: [facility]:[place] : 1950 Planned Disposition: Home Anticipated Discharge Date: Discharge Date: Expected LOS: Initial Reviewer: MARY Initial Review Date: 12/22/2018 Generated: 12/23/18 1:41 pm Comments DCP- Discharge Planning Updated by [email or web address]: Cynthia Villarreal on 12/23/18 11:[address] Patient Name: FLORENTIN PANTOJA Admission Status: ER Accout number: [id number] Admission Date: 12-21-2018 : 1950 Admission Diagnosis:SHORTNESS OF BREATH Attending: RED LAKE Current LOS: 2 Anticipated DC Date: Planned Disposition: Home Primary Insurance: MEDICARE A & B Discharge Planning Comments: Spoke to pt about DC today and medications being sent home. Pt has order for Updrafts with machine. Pt uses [employer] and signed FABIO form to send Nebulizer order to [facility]. IMM served. Family will be picking up. Zipper Sewing Machine Operator: Cynthia Villarreal DCP- Discharge Planning Updated by [id number]: Cynthia Villarreal on 12/22/18 3:[address] Patient Name: FLORENTIN PANTOJA Admission Status: ER Accout number: [id number] Admission Date: 12-21-2018 : 1950 Admission Diagnosis: Attending: [place] Current LOS: 1 Anticipated DC Date: Planned Disposition: Home Primary Insurance: MEDICARE A & B Discharge Planning Comments: SPOKE TO PT ABOUT DC PLANS AND NEEDS. PT STATES LIVES WITH , HAS NO DME OR MEDICAL NEEDS TO GO HOME. HOME IS SAFE TO RETURN TO. USES DR. LADD PCP AND [employer] [facility] FOR MEDICATIONS. Zipper Sewing Machine Operator: Cynthia Villarreal DCPIA - Discharge Planning Initial Assessment Updated by [email or web address]: Cynthia Villarreal on 12/22/18 4:56 pm * Is the patient Alert and Oriented? Yes * How many steps to enter\exit or inside your home? * PCP DR LADD * Pharmacy [facility] * Preadmission Environment Home with Family * Equipment None * List name and contact numbers for known caregivers / representatives who currently or will assist patient after discharge: KEEGAN PANTOJA [phone] * Verbal permission to speak to the caregivers and representatives has been obtained from the patient. Yes * Additional services required to return to the preadmission environment? No * Can the patient safely return to the preadmission environment? Yes * Has this patient been hospitalized within the prior 30 days at any hospital? No External Providers External Provider: [facility] Next Contact Date: Service Request Date: Service Type: Resolution: Reviewer: Comments: Last DP export: 12/23/18 11:18 a Patient Name: FLORENTIN PANTOJA Page [phone] at 1241 All edits/amendments must be made on the electronic document DICTATION DATE: 12/23/181239 PROFESSOR OF PRACTICE: DEN 12/23/18 1240 RPT#: [id number] DC DATE: STATUS: ADM IN [facility] [address] [place] [address] END OF REPORT
--- NOTE | 2018-12-23 15:44 | NUR ---
D/C INSTRUCTIONS GIVEN TO PT AND FAMILY, PT VERBALIZES UNDERSTANDING. IV REMOVED FROM RIGHT AC, PT TAKEN TO CAR VIA WHEELCHAIR.
[2018-12-24 09:13] LABS: ANGIOTENSIN CONVERTING ENZYME 78 U/L (14-82)
--- NOTE | 2018-12-24 12:15 | MORECARE ---
CASE MANAGEMENT DISCHARGE SUMMARY PATIENT: FLORENTIN PANTOJA UNIT: [id number] ADM DATE: 12/21/18 AGE: 68 : 50 SEX: F ROOM/BED: D.1201 AUTHOR: EZRA DE PHYSICIAN: REFERRING PHYSICIAN: [place] MD DATE OF SERVICE: 12/24/18 Discharge Plan Patient Name: FLORENTIN PANTOJA Facility: [facility]:[place] : 1950 Planned Disposition: Home Anticipated Discharge Date: Discharge Date: 12/23/2018 Expected LOS: Initial Reviewer: [email or web address] Initial Review Date: 12/22/2018 Generated: 12/24/18 1:15 pm Comments DCP- Discharge Planning Updated by [email or web address]: Cynthia Villarreal on 12/23/18 11:[address] Patient Name: FLORENTIN PANTOJA Admission Status: ER Accout number: [id number] Admission Date: 12-21-2018 : 1950 Admission Diagnosis:SHORTNESS OF BREATH Attending: RED [place]KE Current LOS: 2 Anticipated DC Date: Planned Disposition: Home Primary Insurance: MEDICARE A & B Discharge Planning Comments: Spoke to pt about DC today and medications being sent home. Pt has order for Updrafts with machine. Pt uses [employer] and signed FABIO form to send Nebulizer order to [facility]. IMM served. Family will be picking up. Dental Appliance Mechanic: Cynthia Villarreal DCP- Discharge Planning Updated by [id number]: Cynthia Villarreal on 12/22/18 3:[address] Patient Name: FLORENTIN PANTOJA Admission Status: ER Accout number: [id number] Admission Date: 12-21-2018 : 1950 Admission Diagnosis: Attending: RED [place]KE Current LOS: 1 Anticipated DC Date: Planned Disposition: Home Primary Insurance: MEDICARE A & B Discharge Planning Comments: SPOKE TO PT ABOUT DC PLANS AND NEEDS. PT STATES LIVES WITH , HAS NO DME OR MEDICAL NEEDS TO GO HOME. HOME IS SAFE TO RETURN TO. USES DR. LADD PCP AND [facility] FOR MEDICATIONS. Dental Appliance Mechanic: Cynthia Villarreal DCPIA - Discharge Planning Initial Assessment Updated by [email or web address]: Cynthia Villarreal on 12/22/18 4:56 pm * Is the patient Alert and Oriented? Yes * How many steps to enter\exit or inside your home? * PCP DR LADD * Pharmacy [facility] * Preadmission Environment Home with Family * Equipment None * List name and contact numbers for known caregivers / representatives who currently or will assist patient after discharge: KEEGAN PANTOJA [phone] * Verbal permission to speak to the caregivers and representatives has been obtained from the patient. Yes * Additional services required to return to the preadmission environment? No * Can the patient safely return to the preadmission environment? Yes * Has this patient been hospitalized within the prior 30 days at any hospital? No Coverage Notice Reviewer: MARY Villarreal Notice Issued Date-Time: 12/23/2018 11:44 Notice Type: IM Discharge Notice Notice Delivered To: Patient Relationship to Patient: Self Car Seat Upholsterer Name: Delivery Method: HAND - Hand Delivered Tayla Days: Prior Verbal Notification: Recipient Understood Notice: Yes Recipient Signature: Yes Med Rec Note Co-signed by Attending: Coverage Notice Comment: Reviewer: MARY Villarreal Notice Issued Date-Time: 12/23/2018 12:00 Notice Type: Patient Choice Letter Notice Delivered To: Patient Relationship to Patient: Self Car Seat Upholsterer Name: Delivery Method: HAND - Hand Delivered Tayla Days: Prior Verbal Notification: Recipient Understood Notice: Yes Recipient Signature: Yes Med Rec Note Co-signed by Attending: Coverage Notice Comment: [employer] Last DP export: 12/23/18 11:41 a Patient Name: FLORENTIN PANTOJA Page 97475 at 1215 All edits/amendments must be made on the electronic document DICTATION DATE: 12/24/18 1214 FOREST NURSERY WORKER: DEN 12/24/18 1214 RPT#: [id number] DC DATE:12/23/18 STATUS: DIS IN [facility] [address] [place] [address] END OF REPORT
== END 2018-12-23 15:45 | disposition home or self-care (01) | DRG 194 ==
LOC: D.ER 21:36 → D.M3 12-21 01:44 → D.EDHOLD 12-21 01:44 → D.M3 12-21 07:21
PROVIDERS: Family Medicine; Internal Medicine Pulmonary Disease; ADMIT Internal Medicine Nephrology; ATTEND Internal Medicine Nephrology
DX: J18.1 Lobar pneumonia, unspecified organism (principal); I24.8 Other forms of acute ischemic heart disease; R91.1 Solitary pulmonary nodule; E87.6 Hypokalemia; I10 Essential (primary) hypertension; E78.5 Hyperlipidemia, unspecified; E03.9 Hypothyroidism, unspecified; K58.9 Irritable bowel syndrome, unspecified; D69.6 Thrombocytopenia, unspecified; M06.9 Rheumatoid arthritis, unspecified; I25.10 Atherosclerotic heart disease of native coronary artery without angina pectoris; J45.909 Unspecified asthma, uncomplicated; K22.70 Barrett's esophagus without dysplasia; K44.9 Diaphragmatic hernia without obstruction or gangrene; K21.0 Gastro-esophageal reflux disease with esophagitis; R00.0 Tachycardia, unspecified

== ENCOUNTER 2019-01-11 23:56 | Emergency (ER) | payer MEDICARE, OTHER ==
[~2019-01-11] VITALS: Ht 162.6 cm; Wt 79.5 kg
[~2019-01-11 23:56] MED LIST changes: +ALBUTEROL SULF8.5 GM INH; +BREO ELLIPTA 21 EACH INH; +BYSTOLIC5 MG PO; +FLUTICASONE PRO16 GM NASAL; +OMNICEF300 MG PO; +PREDNISONE20 MG PO; +PULMICORT0.5 MG/21 UPD; +SINGULAIR10 MG PO; +TESSALON PERLE100 MG PO; +Tessalon Perle PO; +ZITHROMAX250 MG PO
[2019-01-12 00:03] VITALS: Ht 162.6 cm; Wt 79.5 kg
[2019-01-12] MEDS ORDERED: VITAMIN D5000 UNIT PO (00:06)
[2019-01-12 01:14] LABS: APPEARANCE CLEAR (CLEAR); BILIRUBIN NEGATIVE (NEGATIVE); COLOR YELLOW (YELLOW); GLUCOSE NEGATIVE (NEGATIVE); KETONE NEGATIVE (NEGATIVE); NITRITE NEGATIVE (NEGATIVE); PROTEIN NEGATIVE (NEGATIVE); UROBILINOGEN NORMAL (NORMAL)
[2019-01-12] MEDS ORDERED: HYDROCODON-ACE1 EAC2 PO (02:17)
[2019-01-12] MEDS ORDERED: STERAPRED DS 1010 MG PO (02:17)
[2019-01-12 02:52] VITALS: BP 125/55
== END 2019-01-12 02:53 | disposition home or self-care (01) ==
LOC: D.ER 23:56
PROVIDERS: Family Medicine
DX: S39.012A Strain of muscle, fascia and tendon of lower back, initial encounter (principal); X58.XXXA Exposure to other specified factors, initial encounter; Y93.89 Activity, other specified; Y92.89 Other specified places as the place of occurrence of the external cause; M54.16 Radiculopathy, lumbar region

== ENCOUNTER 2019-01-17 10:32 | Inpatient (IN) | payer MEDICARE, OTHER ==
[~2019-01-17] VITALS: Ht 162.6 cm; Wt 7.0 kg
[~2019-01-17 10:32] MED LIST changes: +HYDROCODON-ACE1 EAC2 PO; +STERAPRED DS 1010 MG PO; +VITAMIN D5000 UNIT PO
[2019-01-17 11:07] LABS: BASOPHILS 0.2 % (0-2); HEMOGLOBIN 13.9 g/dL (12-16); IMMATURE GRANULOCYTES 0.4 % (0-5); LYMPHOCYTES 12.4 % (15-50); MCH 30.3 pg (26.0-34.0); MCHC 34.8 g/dL (31.0-37.0); MCV 87.1 fL (80.0-100.0); MEAN PLATELET VOLUME 9.5 fL (7.4-10.4); MONOCYTES 7.3 % (2-11); NEUTROPHILS 77.7 % (40-80); RBC 4.59 10x6/uL (4.00-5.40); RDW 14.4 % (11.5-14.5); WBC 11.6 10x3/uL (4.8-10.8)
[2019-01-17 11:09] LABS: PLATELET COUNT 135 10x3/uL (130-400)
[2019-01-17 11:22] LABS: ALBUMIN 3.7 g/dL (3.4-5.0); ALKALINE PHOSPHATASE 84 U/L (46-116); ALT (SGPT) 18 U/L (10-68); BILIRUBIN - TOTAL 1.89 mg/dL (0.2-1.3); CALC OSMOLALITY 263 mosm/kg (275-300); CALCIUM 9.2 mg/dL (8.5-10.1); CARBON DIOXIDE 27.4 mmol/L (21.0-32.0); CHLORIDE - SERUM 102 mmol/L (98-107); CREATININE - SERUM 0.6 mg/dL (0.6-1.3); GLUCOSE 129 mg/dL (74-106); POTASSIUM - SERUM 3.5 mmol/L (3.5-5.1); PROTEIN - SERUM 7.4 g/dL (6.4-8.2); SODIUM 130 mmol/L (136-145); UREA NITROGEN 14 mg/dL (7-18); eGFR NON AFRICAN AMERICAN > 90 mL/min (90-120)
--- NOTE | 2019-01-17 12:02 | NUR ---
URINE SAMPLE SENT TO THE LAB
[2019-01-17 12:38] LABS: APPEARANCE CLEAR (CLEAR); BILIRUBIN NEGATIVE (NEGATIVE); COLOR YELLOW (YELLOW); GLUCOSE NEGATIVE (NEGATIVE); KETONE NEGATIVE (NEGATIVE); NITRITE NEGATIVE (NEGATIVE); PROTEIN NEGATIVE (NEGATIVE); SPECIFIC GRAVITY 1.005 (1.005-1.020); UROBILINOGEN NORMAL (NORMAL)
--- NOTE | 2019-01-17 13:08 | NUR ---
PT REPORT CALLED TO SON, FLOOR NURSE, VIA SBAR. PT TRANSPORTED TO MRI VIA WHEELCHAIR AT THIS TIME.
[2019-01-17] MEDS ORDERED: ZOLOFT100 MG PO (14:18)
[2019-01-17 14:21] VITALS: BP 137/77
[2019-01-17 14:23] VITALS: BP 137/77; Ht 162.6 cm; Wt 7.0 kg
--- NOTE | 2019-01-17 14:34 | NUR ---
ADMITTED PT TO OUR FLOOR FROM ER. PT IS A&O SITTING UP IN BED. PT IS VERY IRRITABLE R/T HER LOWER BACK PAIN HOWEVER SHE DENIES WANTING PAIN MEDICATION THIS TIME. PT COMPLAINING THAT SHE HASNT EATEN ALL DAY, I ORDERED HER A FOOD TRAY. PT ALSO COMPLAINING ABOUT HER HOME MEDICATIONS SHE HASNT HAD ANY OF THEM TODAY. SHE IS CONCERNED ABOUT HER ASA AND PLAVIX AND SHE RECENTLY HAD TWO STENTS PLACED. WILL DISCUSS WITH PRIMARY AND INQUIRE ABOUT STARTING HER HOME MEDICATIONS. PT VOICED THANKS. NO CURRENT NEEDS AT THIS TIME. WILL CTM.
--- NOTE | 2019-01-17 15:33 | NUR ---
PT C/O BACK PAIN REQUESTING AND PROVIDED WITH PRN MORPHINE. PT SITTING UP IN BED RESTING WITH AT BEDSIDE. PT VOICED THANKS AND DENIES ANY FURTHER NEEDS AT THIS TIME. CL IN REACH, BED IN LOWEST, SIDE RAILS X2. WILL CTM.
[2019-01-17 16:33] VITALS: BP 133/67
[2019-01-17 20:00] VITALS: BP 143/72
[2019-01-18] VITALS: BP 114/58
[2019-01-18 04:00] VITALS: BP 136/61
[2019-01-18 07:04] LABS: BASOPHILS 0 % (0-2); EOSINOPHILS 0 % (0-7); HEMATOCRIT 37.1 % (36.0-48.0); HEMOGLOBIN 13.1 g/dL (12-16); IMMATURE GRANULOCYTES 0.2 % (0-5); MCHC 35.3 g/dL (31.0-37.0); MEAN PLATELET VOLUME 9.3 fL (7.4-10.4); MONOCYTES 1.8 % (2-11); PLATELET COUNT 130 10x3/uL (130-400); RBC 4.36 10x6/uL (4.00-5.40); WBC 12.3 10x3/uL (4.8-10.8)
[2019-01-18 07:11] LABS: MCV 85.1 fL (80.0-100.0)
[2019-01-18 07:19] LABS: ALBUMIN 3.3 g/dL (3.4-5.0); ALKALINE PHOSPHATASE 114 U/L (46-116); ALT (SGPT) 33 U/L (10-68); BILIRUBIN - TOTAL 1.08 mg/dL (0.2-1.3); CALC OSMOLALITY 281 mosm/kg (275-300); CALCIUM 8.9 mg/dL (8.5-10.1); CARBON DIOXIDE 25.9 mmol/L (21.0-32.0); CHLORIDE - SERUM 103 mmol/L (98-107); CREATININE - SERUM 0.6 mg/dL (0.6-1.3); GLUCOSE 223 mg/dL (74-106); MAGNESIUM - SERUM 1.8 mg/dL (1.8-2.4); POTASSIUM - SERUM 3.9 mmol/L (3.5-5.1); PROTEIN - SERUM 7.1 g/dL (6.4-8.2); SODIUM 137 mmol/L (136-145); UREA NITROGEN 14 mg/dL (7-18); eGFR NON AFRICAN AMERICAN > 90 mL/min (90-120)
[2019-01-18 08:20] VITALS: BP 136/77
--- NOTE | 2019-01-18 08:55 | NUR ---
admininstered morning meds whole without difficulty. denies any needs or pain. no signs of distress noted. call light within reach, fall precautions in place. will continue to monitor
--- NOTE | 2019-01-18 11:07 | MORECARE ---
CASE MANAGEMENT DISCHARGE SUMMARY PATIENT: FLORENTIN PANTOJA UNIT: [id number] ADM DATE: 01/17/19 AGE: 68 : 50 SEX: F ROOM/BED: D.1207 AUTHOR: SANTINO,DOC PHYSICIAN: REFERRING PHYSICIAN: [place] MD DATE OF SERVICE: 01/18/19 Discharge Plan Patient Name: FLORENTIN PANTOJA Facility: [facility]:[place] : 1950 Planned Disposition: Home Anticipated Discharge Date: Discharge Date: Expected LOS: Initial Reviewer: [email or web address] Initial Review Date: 01/18/2019 Generated: 01/18/19 12:07 pm Comments DCP- Discharge Planning Updated by [id number]: Cynthia Villarreal on 01/18/19 10:[address] Patient Name: FLORENTIN PANTOJA Admission Status: ER Accout number: [id number] Admission Date: 01-17-2019 : 1950 Admission Diagnosis: Attending: RED LAKE Current LOS: 1 Anticipated DC Date: Planned Disposition: Home Primary Insurance: MEDICARE A & B Discharge Planning Comments: CM MEET WITH PT AFTER GETTING VERBAL CONSENT TO CONTINUE WITH INITAL ASSESSMENT AND DISCHARGE NEEDS. CM EDUCATED ON ROLE OF CM AND THE SERVICES AVALIABLE SUCH HH, REHAB AND DME SERVICES. PT LIVES AT HOME WITH . DENIES CM NEEDS. FEELS LIKE HOME IS A SAFE DC PLAN. WILL DRIVE HOME AT DC. CM WILL CONTINUE TO FOLLOW. Inspector Welded Parts: Cynthia Villarreal DCPIA - Discharge Planning Initial Assessment Updated by [email or web address]: Cynthia Villarreal on 01/18/19 11:01 am * Is the patient Alert and Oriented? Yes * How many steps to enter\exit or inside your home? * PCP LADD * Pharmacy [facility] * Preadmission Environment Home with Family * ADLs Independent * List name and contact numbers for known caregivers / representatives who currently or will assist patient after discharge: SPOUSE * Verbal permission to speak to the caregivers and representatives has been obtained from the patient. N/A * Community resources currently utilized None * Additional services required to return to the preadmission environment? No * Can the patient safely return to the preadmission environment? Yes * Has this patient been hospitalized within the prior 30 days at any hospital? Yes Patient Name: FLORENTIN PANTOJA Page 95965 at 1107 All edits/amendments must be made on the electronic document DICTATION DATE: 01/18/191106 HISTORICAL MANUSCRIPTS CURATOR: DEN 01/18/191106 RPT#: [id number] DC DATE: STATUS: ADM IN [facility] [address] [place] [address] END OF REPORT
[2019-01-18 13:07] VITALS: BP 144/74
--- NOTE | 2019-01-18 14:10 | NUR ---
sitting up in bed watching tv. denies any needs or pain. no signs of distress noted. call light within reach, fall precautions in place. will continue to monitor
--- NOTE | 2019-01-18 15:56 | NUR ---
CALLED DR. SCHAFFER IN REGARDS TO D/C ORDERS FOR PT, UNABLE TO REACH OR LEAVE D/T BEING FULL
[2019-01-18] MEDS ORDERED: PERCOCET 7.5/321 TAB PO (17:38)
--- NOTE | 2019-01-18 18:09 | NUR ---
I have reviewed this patient and I concur with the Shift Assessment completed by the Licensed Practical Nurse today this shift.
--- NOTE | 2019-01-19 11:21 | MORECARE ---
CASE MANAGEMENT DISCHARGE SUMMARY PATIENT: FLORENTIN PANTOJA JO UNIT: [id number] ADM DATE: 01/18/19 AGE: 68 : 50 SEX: F ROOM/BED: D.1207 AUTHOR: SANTINODOC PHYSICIAN: REFERRING PHYSICIAN: [place] MD DATE OF SERVICE: 01/19/19 Discharge Plan Patient Name: FLORENTIN PANTOJA Facility: [facility]:[place] : 1950 Planned Disposition: Home Anticipated Discharge Date: 01/18/19 Discharge Date: 01/18/2019 Expected LOS: 1 Initial Reviewer: MARY Initial Review Date: 01/18/2019 Generated: 01/19/19 12:21 pm Comments DCP- Discharge Planning Updated by [email or web address]: Cynthia Villarreal on 01/18/19 10:[address] Patient Name: FLORENTIN PANTOJA Admission Status: ER Accout number: [id number] Admission Date: 01-17-2019 : 1950 Admission Diagnosis: Attending: [place]KE Current LOS: 1 Anticipated DC Date: Planned Disposition: Home Primary Insurance: MEDICARE A & B Discharge Planning Comments: CM MEET WITH PT AFTER GETTING VERBAL CONSENT TO CONTINUE WITH INITAL ASSESSMENT AND DISCHARGE NEEDS. CM EDUCATED ON ROLE OF CM AND THE SERVICES AVALIABLE SUCH HH, REHAB AND DME SERVICES. PT LIVES AT HOME WITH . DENIES CM NEEDS. FEELS LIKE HOME IS A SAFE DC PLAN. WILL DRIVE HOME AT DC. CM WILL CONTINUE TO FOLLOW. Ocularist: Cynthia Villarreal DCPIA - Discharge Planning Initial Assessment Updated by [email or web address]: Cynthia Villarreal on 01/18/19 11:01 am * Is the patient Alert and Oriented? Yes * How many steps to enter\exit or inside your home? * PCP LADD * Pharmacy [facility] * Preadmission Environment Home with Family * ADLs Independent * List name and contact numbers for known caregivers / representatives who currently or will assist patient after discharge: SPOUSE * Verbal permission to speak to the caregivers and representatives has been obtained from the patient. N/A * Community resources currently utilized None * Additional services required to return to the preadmission environment? No * Can the patient safely return to the preadmission environment? Yes * Has this patient been hospitalized within the prior 30 days at any hospital? Yes Last DP export: 01/18/19 10:07 a Patient Name: FLORENTIN PANTOJA Page [id number] at 1121 All edits/amendments must be made on the electronic document DICTATION DATE: 01/19/19 112 MICROPHONE OPERATOR: DEN 01/19/191120 RPT#: [id number] DC DATE:01/18/19 STATUS: DIS IN [facility] [address] [place] [address] END OF REPORT
== END 2019-01-18 18:37 | disposition home or self-care (01) | DRG 552 ==
LOC: D.ER 10:32 → D.M3 12:57 → OBSVTIME 13:16 → D.M3 01-18 13:25
PROVIDERS: Family Medicine; ADMIT Internal Medicine Nephrology; ATTEND Internal Medicine Nephrology
DX: M54.16 Radiculopathy, lumbar region (principal); I25.10 Atherosclerotic heart disease of native coronary artery without angina pectoris; I10 Essential (primary) hypertension; E78.5 Hyperlipidemia, unspecified; E03.9 Hypothyroidism, unspecified; M19.90 Unspecified osteoarthritis, unspecified site; K21.9 Gastro-esophageal reflux disease without esophagitis; K58.9 Irritable bowel syndrome, unspecified; K22.70 Barrett's esophagus without dysplasia; M06.9 Rheumatoid arthritis, unspecified; F32.9 Major depressive disorder, single episode, unspecified; F41.9 Anxiety disorder, unspecified

== ENCOUNTER → 2019-05-18 08:26 | Outpatient (CLI) | payer MEDICARE, OTHER ==
[2019-01-17 14:23] VITALS: BMI 30.1
[~2019-05-18 08:26] MED LIST changes: +PERCOCET 7.5/321 TAB PO; +ZOLOFT100 MG PO
== END | disposition home or self-care (01) ==
LOC: D.RAD 08:26
PROVIDERS: ATTEND Internal Medicine Gastroenterology
DX: R13.10 Dysphagia, unspecified (principal)

== ENCOUNTER 2020-02-28 07:21 | Day surgery (SDC) | payer MEDICARE, OTHER ==
[~2020-02-28] VITALS: Ht 162.6 cm; Wt 80.0 kg
--- NOTE | ~2020-02-28 | OP ---
PATIENT NAME: FLORENTIN PANTOJA MEDICAL RECORD: [id number] :50 LOCATION:D.OPS ADMISSION DATE: SURGEON: DYLON SOOD MD DATE OF OPERATION: 02/28/2020 PREOPERATIVE DIAGNOSES: 1. Gastric polyp. 2. Dysphagia. 3. History of Navarro esophagus. POSTOPERATIVE DIAGNOSES: 1. Gastric polyp. 2. Dysphagia. 3. History of Navarro esophagus. 4. No evidence of a Schatzki's ring. 5. Also, 11 other smaller cardial and fundal polyps. PROCEDURES: 1. Esophagogastroduodenoscopy with antral and distal esophageal biopsies. 2. Snare gastric polypectomy. 3. Ablation of 11 gastric polyps utilizing the argon plasma social media community manager. 4. Balloon dilation of esophagus 54-Comoran with a uyhzzuo-edw-seaymbys balloon. SURGEON: Dylon Sood MD FLOOR PLAN ADJUSTER: None. BLOOD LOSS: Minimal. ANESTHESIA: IV sedation. COMPLICATIONS: None. The risks, possible complications and alternatives to the procedure were explained to the patient. She elects to proceed. ENDOSCOPIC COURSE: The patient was conveyed to the endoscopy suite electively on 02/28/2020. IV sedation was induced by the anesthesia staff. A bite block was inserted. A gastroscope was inserted into the mouth. It was advanced easily into the hypopharynx. The esophagus was easily intubated as were the stomach and duodenum. Upon withdrawal, retroflexed and angulus views were obtained. Cold endoscopic biopsies were obtained in the antrum to rule out H pylori. I then advanced a sclerotherapy needle. I punctured the base of the polyp, which was in the antrum. I injected epinephrine. I then withdrew the injection needle. I advanced an endoscopic snare. Utilizing the coagulation setting, I performed a snare polypectomy of the polyp. The polyp was grasped within a bag retrieval device and was withdrawn through the mouth. I then reintubated the patient's esophagus and stomach. I advanced it iowipzc-lzh-tezbdxtg balloon. I then sequentially dilated the entire length of the esophagus to 54-Comoran. The balloon was removed. I then advanced the OPERATIVE REPORT [id number] FLORENTIN PANTOJA gastroscope. Cold endoscopic biopsies were obtained in the area what appeared to be Navarro esophagus at the EG junction. I then advanced the gastroscope further. There were 11 smaller polyps which did not appear to be glandular and really did not need to be biopsied I felt due to their small size. These were ablated utilizing the argon plasma social media community manager with the esophageal setting in the forced mode. There was no bleeding. The endoscope was then withdrawn under direct vision. I will see the patient in my office in 2-3 weeks. It is likely that I want to do another upper endoscopy on the patient in about 1 year to ensure there has been no regrowth of the glandular appearing polyp within the antrum. TRANSINT:[id number] Voice Confirmation ID: [id number] DOCUMENT ID: [id number] DYLON SOOD MD CC: [id number] DICTATION DATE: 02/28/20 114 SORT SUPERVISOR: 02/28/202052 [facility] 02/28/20 [facility] [address] [place] [address]
[2020-02-28 08:09] LABS: HEMATOCRIT 37.9 % (36.0-48.0); HEMOGLOBIN 12.4 g/dL (12-16); MCH 28.7 pg (26.0-34.0); MCHC 32.7 g/dL (31.0-37.0); MCV 87.7 fL (80.0-100.0); MEAN PLATELET VOLUME 8.9 fL (7.4-10.4); RBC 4.32 10x6/uL (4.00-5.40)
[2020-02-28] MEDS ORDERED: LINZESS290 MCG (08:45)
[2020-02-28] MEDS ORDERED: TYLENOL #4 W/CO1 TAB (08:48)
[2020-02-28] MEDS ORDERED: ARTHROTEC 501 TAB.EC PO (08:50)
[2020-02-28] MEDS ORDERED: VITAMIN D3 (08:52)
[2020-02-28 09:02] VITALS: BP 164/83; Ht 162.6 cm; Wt 80.0 kg
--- NOTE | 2020-02-28 10:54 | NUR ---
DR. CABALLERO NOTIFIED AND REVIEWED PT'S BEHAVIOR AND ASSESSMENT RESULTS. PT IS A LOW RISK PER DR. CABALLERO. DR. CABALLERO STATED TO GIVE RESOURCES TO PT AT TIME OF DISCHARGE. NO FURTHER ORDERS AT THIS TIME. RESOURCES REVIEWED.
--- NOTE | 2020-02-28 14:51 | NUR ---
1310 DRESSED. PROVIDED WITH DC INFORMATION INCLUDING: MED REC, SHEET LISTING NSAIDS TO AVOID, RTC APPT., & [facility] POST ENDOSCOPIC D/C INSTRUCTIONS. PT VOICED UNDERSTANDING. TO PRIVATE CAR PER WHEELCHAIR. HOME WITH , ARMANDO PANTOJA. Kiki SIMPSON R.N.
--- NOTE | 2020-02-28 18:31 | HP ---
PATIENT: FLORENTIN PANTOJA MEDICAL RECORD: [id number] ACCOUNT: [id number] LOCATION:[place] : 50 ADMISSION DATE: 02/28/20 PCP: THOMAS LADD MD HISTORY AND PHYSICAL EXAMINATION CHIEF COMPLAINT: Polyp. HISTORY OF PRESENT ILLNESS: The patient has a gastric polyp. She states that she has not been anemic. She is here for an upper endoscopy with polypectomy. SOCIAL HISTORY: Nonsmoker. PAST MEDICAL AND SURGICAL HISTORY: Asthma; coronary artery disease; history of coronary stents; gastroesophageal reflux; some mild dysphagia; arthritis; hypothyroidism, on replacement therapy; hypercholesterolemia. HOME MEDICINES: Please see the nursing list. ALLERGIES: TOPAMAX, DILAUDID, NAPROXEN, ALEVE WELL DEMEROL. PHYSICAL EXAMINATION: GENERAL: The patient does not appear acutely ill. She does not appear chronically ill. EYES: Extraocular movements are intact. NECK: Trachea is midline. CHEST: No intercostal retractions. PULMONARY: Nonlabored. No stridor. IMPRESSION: 1. Gastric polyp. 2. Dysphagia. PLAN: EGD with probable esophageal dilation. Gastric polypectomy. TRANSINT:[id number] Voice Confirmation ID: [id number] DOCUMENT ID: [id number] JASMINA SOOD MD at 1831 CC: YOCASTA HUTTON MD, THOMAS LADD and ALEXANDRA QUARLES MD [id number] DICTATION DATE: 02/28/20 1105 SCARFER OPERATOR: 02/28/20 1141 [facility] 02/28/20 [place] [address]
[2020-02-29] MEDS ORDERED: PERCOCET 10-321 EAC1 PO (12:43)
== END 2020-02-28 13:10 | disposition home or self-care (01) ==
LOC: D.OPS 07:21
PROVIDERS: Anesthesiology; ATTEND Surgery
DX: R13.10 Dysphagia, unspecified (principal); K22.70 Barrett's esophagus without dysplasia; K22.8 Other specified diseases of esophagus; K31.7 Polyp of stomach and duodenum

== ENCOUNTER 2020-02-29 10:16 | Emergency (ER) | payer MEDICARE, OTHER ==
[~2020-02-29] VITALS: Ht 162.6 cm; Wt 80.0 kg
[~2020-02-29 10:16] MED LIST changes: +ARTHROTEC 501 TAB.EC PO; +LINZESS290 MCG; +TYLENOL #4 W/CO1 TAB; +VITAMIN D3
[2020-02-29 10:18] VITALS: Ht 162.6 cm; Wt 80.0 kg
[2020-02-29] MEDS ORDERED: PERCOCET 10-321 EAC1 PO (12:43)
[2020-02-29 12:57] VITALS: BP 155/74
== END 2020-02-29 12:57 | disposition home or self-care (01) ==
LOC: D.ER 10:16
DX: M19.90 Unspecified osteoarthritis, unspecified site (principal); G89.29 Other chronic pain; J45.909 Unspecified asthma, uncomplicated; E07.9 Disorder of thyroid, unspecified; M25.561 Pain in right knee

== ENCOUNTER 2020-03-22 19:00 | Outpatient (CLI) | payer MEDICARE, OTHER ==
[2020-02-29 10:18] VITALS: BMI 30.2
[~2020-03-22 19:00] MED LIST changes: +PERCOCET 10-321 EAC1 PO
== END 2020-03-22 23:59 | disposition home or self-care (01) ==
LOC: D.MAMMO 19:00
PROVIDERS: ATTEND Family Medicine
DX: Z12.31 Encounter for screening mammogram for malignant neoplasm of breast (principal)

== ENCOUNTER 2020-12-27 09:02 | Inpatient (IN) | payer MEDICARE, OTHER ==
[2020-12-27] VITALS (10 sets, daily range): BP systolic 104–186; BP diastolic 59–103
[~2020-12-27] VITALS: Ht 162.6 cm; Wt 77.5 kg
[~2020-12-27 09:02] MED LIST changes: -LINZESS290 MCG; +LINZESS290 MCG PO; -VITAMIN D3; +VITAMIN D3 PO
[2020-12-27 09:25] LABS: BASOPHILS 0.4 % (0-2); EOSINOPHILS 0 % (0-7); HEMATOCRIT 42.8 % (36.0-48.0); HEMOGLOBIN 14.2 g/dL (12-16); IMMATURE GRANULOCYTES 0.4 % (0-5); LYMPHOCYTE ABS# 2.62 10x3/uL (1.18-3.74); LYMPHOCYTES 18.3 % (15-50); MCH 28.2 pg (26.0-34.0); MCHC 33.2 g/dL (31.0-37.0); MCV 85.1 fL (80.0-100.0); MEAN PLATELET VOLUME 9.5 fL (7.4-10.4); MONOCYTES 5.6 % (2-11); NEUTROPHIL ABS# 10.76 10x3/uL (1.56-6.13); NEUTROPHILS 75.3 % (40-80); RBC 5.03 10x6/uL (4.00-5.40); RDW 15.8 % (11.5-14.5); WBC 14.3 10x3/uL (4.8-10.8)
[2020-12-27 09:28] LABS: PLATELET COUNT 124 10x3/uL (130-400)
[2020-12-27 09:30] LABS: ANION GAP 15.9 mmol/L (8-16); CALCIUM 8.6 mg/dL (8.5-10.1); CARBON DIOXIDE 24.6 mmol/L (21.0-32.0); CREATININE - SERUM 2.2 mg/dL (0.6-1.3); POTASSIUM - SERUM 4.5 mmol/L (3.5-5.1)
[2020-12-27 09:37] LABS: ALBUMIN 2.9 g/dL (3.4-5.0); BILIRUBIN - TOTAL 2.74 mg/dL (0.2-1.3); PROTEIN - SERUM 6.9 g/dL (6.4-8.2)
[2020-12-27 10:48] LABS: BILIRUBIN NEGATIVE (NEGATIVE); KETONE NEGATIVE (NEGATIVE); NITRITE NEGATIVE (NEGATIVE)
[2020-12-27 10:49] LABS: AMORPHOUS SEDIMENT <1+ LPF (NONE SEEN); BACTERIA FEW HPF (NONE SEEN); SQUAMOUS EPITHELIAL 0-5 HPF (0-4); WHITE CELLS - URINE RARE HPF (0-4)
--- NOTE | 2020-12-28 00:44 | NUR ---
REPORT RECEIVED, PT A&O, RESTING IN BED. STATES SHE DIDNT SLEEP LAST NIGHT AND IS VERY TIRED. CONT TO FALL ASLEEP DURING CONVERSATIONS. NO S/S OF DISTRESS OBSERVED. RR EVEN & UNLABORED ON RA. BED LOCKED AND LOWERED, CL IN REACH. ASSESSMENT COMPLETE. WILL CONT POC.
[2020-12-28 05:03] VITALS: BP 142/65
[2020-12-28 08:51] VITALS: BP 148/78
[2020-12-28 13:06] VITALS: BP 150/72
[2020-12-28 13:08] VITALS: Ht 162.6 cm; Wt 77.5 kg
[2020-12-28 15:51] VITALS: BP 142/71
--- NOTE | 2020-12-28 19:15 | NUR ---
RECEIVED REPORT, WILL ASSUME CARE OF PT, ASKING FOR PAIN MEDS, WILL PROVIDE ORDERED, DENIES ANY OTHER NEEDS AT THIS TIME, BED IS LOW, SRX2, CALL LIGHT IN REACH, FAMILY AT BEDSIDE, WILL CONTINUE PLAN OF CARE
[2020-12-28 21:05] VITALS: BP 112/48
[2020-12-29] VITALS (7 sets, daily range): BP systolic 122–165; BP diastolic 62–76
--- NOTE | 2020-12-29 07:33 | NUR ---
INITIAL ROUNDS- PT RESTING COMFORTABLY IN BED, WITH EYES CLOSED. EASILY AROUSES TO VOICE. RESP EVEN AND NONLABORED ON 4L NC. RT FA INFUSING NS AT 100CC/HR. SR-98 ON TELE. NAD NOTED, CALL LIGHT IN REACH, WILL CONTINUE TO PLAN OF CARE.
[2020-12-29 07:52] LABS: BASOPHILS 0 % (0-2); IMMATURE GRANULOCYTES 0.3 % (0-5); LYMPHOCYTE ABS# 0.85 10x3/uL (1.18-3.74); LYMPHOCYTES 11.6 % (15-50); MCH 27.6 pg (26.0-34.0); MCHC 32.2 g/dL (31.0-37.0); MCV 85.7 fL (80.0-100.0); MEAN PLATELET VOLUME 9.3 fL (7.4-10.4); MONOCYTES 5.3 % (2-11); NEUTROPHIL ABS# 5.98 10x3/uL (1.56-6.13); NEUTROPHILS 81.8 % (40-80); PLATELET COUNT 123 10x3/uL (130-400); RDW 15.5 % (11.5-14.5); WBC 7.3 10x3/uL (4.8-10.8)
[2020-12-29 07:53] LABS: HEMATOCRIT 34.2 % (36.0-48.0); RBC 3.99 10x6/uL (4.00-5.40)
[2020-12-29 08:05] LABS: ALBUMIN 2.3 g/dL (3.4-5.0); ALKALINE PHOSPHATASE 91 U/L (30-120); BILIRUBIN - TOTAL 0.88 mg/dL (0.2-1.3); CALCIUM 7.9 mg/dL (8.5-10.1); CARBON DIOXIDE 25.2 mmol/L (21.0-32.0); CHLORIDE - SERUM 103 mmol/L (98-107); POTASSIUM - SERUM 4.1 mmol/L (3.5-5.1); SODIUM 138 mmol/L (136-145)
[2020-12-29 08:07] LABS: CALC OSMOLALITY 278 mosm/kg (275-300); GLUCOSE 142 mg/dL (74-106); UREA NITROGEN 15 mg/dL (7-18)
[2020-12-29 08:08] LABS: ALT (SGPT) 12 U/L (10-68); CREATININE - SERUM 0.6 mg/dL (0.6-1.3); eGFR NON AFRICAN AMERICAN > 90 mL/min (90-120)
--- NOTE | 2020-12-29 19:11 | NUR ---
RECEIVED REPORT, WILL ASSUME CARE OF PT, SLEEPING, NO DISTRESS NOTICED AT THIS TIME, BED IS LOW, SRX2, CALL LIGHT IN REACH, WILL CONTINUE PLAN OF CARE
[2020-12-30 02:15] VITALS: BP 162/61
[2020-12-30 06:08] VITALS: BP 129/60
[2020-12-30 06:19] LABS: BASOPHILS 0.2 % (0-2); EOSINOPHILS 2.4 % (0-7); HEMATOCRIT 31.2 % (36.0-48.0); IMMATURE GRANULOCYTES 0.2 % (0-5); LYMPHOCYTE ABS# 0.67 10x3/uL (1.18-3.74); LYMPHOCYTES 11.5 % (15-50); MCH 27.2 pg (26.0-34.0); MCHC 32.1 g/dL (31.0-37.0); MEAN PLATELET VOLUME 8.7 fL (7.4-10.4); MONOCYTES 7.4 % (2-11); NEUTROPHIL ABS# 4.55 10x3/uL (1.56-6.13); NEUTROPHILS 78.3 % (40-80); PLATELET COUNT 142 10x3/uL (130-400); RBC 3.67 10x6/uL (4.00-5.40); RDW 15.2 % (11.5-14.5); WBC 5.8 10x3/uL (4.8-10.8)
[2020-12-30 06:48] LABS: ALBUMIN 2.2 g/dL (3.4-5.0); ALKALINE PHOSPHATASE 79 U/L (30-120); ALT (SGPT) 12 U/L (10-68); BILIRUBIN - TOTAL 0.65 mg/dL (0.2-1.3); CALC OSMOLALITY 280 mosm/kg (275-300); CALCIUM 8.5 mg/dL (8.5-10.1); CARBON DIOXIDE 26.3 mmol/L (21.0-32.0); CHLORIDE - SERUM 105 mmol/L (98-107); CREATININE - SERUM 0.7 mg/dL (0.6-1.3); GLUCOSE 123 mg/dL (74-106); POTASSIUM - SERUM 3.5 mmol/L (3.5-5.1); PROTEIN - SERUM 6.4 g/dL (6.4-8.2); SODIUM 141 mmol/L (136-145); eGFR NON AFRICAN AMERICAN 88 mL/min (90-120)
[2020-12-30 06:50] LABS: UREA NITROGEN 10 mg/dL (7-18)
--- NOTE | 2020-12-30 07:15 | NUR ---
PT UP TO CHAIR, RESTING COMFORTABLY WITH EYES CLOSED, EASILY AROUSES TO VOICE. RESP EVEN AND NONLABORED ON 4L NC. SR-87 ON TELE. RT FA SL. PT DENIES ANY NEEDS AT THIS TIME. CALL LIGHT IN REACH, WILL CONTINUE PLAN OF CARE.
[2020-12-30 09:09] VITALS: BP 141/63
--- NOTE | 2020-12-30 12:14 | NUR ---
HELPED PT TO BEDSIDE COMMODE AND BACK TO BED, ALL NEEDS MET. CALL LIGHT IN REACH.
[2020-12-30 12:17] VITALS: BP 136/60
--- NOTE | 2020-12-30 15:30 | NUR ---
UPDATED PT'S FAMILY ON PLAN OF CARE, PT'S WANTS PT TO GO TO REHAB. NOTIFIED MACK LOPEZ.
[2020-12-30 16:33] VITALS: BP 137/52
[2020-12-30 21:39] VITALS: BP 139/55
[2020-12-31 04:13] VITALS: BP 170/85
[2020-12-31 05:22] VITALS: BP 170/85
--- NOTE | 2020-12-31 06:14 | NUR ---
I have reviewed this patient and I concur with the Shift Assessment completed by the Licensed Practical Nurse today this shift.
[2020-12-31 07:54] LABS: BASOPHILS 0.2 % (0-2); EOSINOPHILS 4.3 % (0-7); HEMATOCRIT 32.5 % (36.0-48.0); HEMOGLOBIN 10.5 g/dL (12-16); IMMATURE GRANULOCYTES 0.4 % (0-5); LYMPHOCYTE ABS# 0.78 10x3/uL (1.18-3.74); LYMPHOCYTES 17.5 % (15-50); MCH 27.3 pg (26.0-34.0); MCHC 32.3 g/dL (31.0-37.0); MCV 84.6 fL (80.0-100.0); MEAN PLATELET VOLUME 9.2 fL (7.4-10.4); MONOCYTES 8.5 % (2-11); NEUTROPHIL ABS# 3.08 10x3/uL (1.56-6.13); NEUTROPHILS 69.1 % (40-80); PLATELET COUNT 163 10x3/uL (130-400); RBC 3.84 10x6/uL (4.00-5.40); RDW 14.9 % (11.5-14.5); WBC 4.5 10x3/uL (4.8-10.8)
[2020-12-31 08:45] LABS: ALBUMIN 2.5 g/dL (3.4-5.0); ALKALINE PHOSPHATASE 81 U/L (30-120); ALT (SGPT) 14 U/L (10-68); BILIRUBIN - TOTAL 0.44 mg/dL (0.2-1.3); CALC OSMOLALITY 286 mosm/kg (275-300); CALCIUM 8.9 mg/dL (8.5-10.1); CARBON DIOXIDE 28.4 mmol/L (21.0-32.0); CHLORIDE - SERUM 105 mmol/L (98-107); CREATININE - SERUM 0.6 mg/dL (0.6-1.3); GLUCOSE 128 mg/dL (74-106); PROTEIN - SERUM 6.2 g/dL (6.4-8.2); SODIUM 144 mmol/L (136-145); UREA NITROGEN 8 mg/dL (7-18); eGFR NON AFRICAN AMERICAN > 90 mL/min (90-120)
--- NOTE | 2020-12-31 09:13 | NUR ---
AM MEDS GIVEN AT THIS TIME, WHEN I WENT TO FLUSH IV TO GIVE PROTONIX, IV WAS LEAKING. D/C IV WITH CATHETER TIP INTACT. PT REFUSED TO HAVE ANOTHER IF STARTED SINCE SHE MIGHT BE DISCHARGING TO REHAB TODAY. PT UP TO CHAIR, ALL NEEDS MET, CALL LIGHT IN REACH.
[2020-12-31 09:36] VITALS: BP 163/79
--- NOTE | 2020-12-31 12:48 | NUR ---
HELPED PT TO BEDSIDE COMMODE AND BACK TO BED. ALL NEEDS MET, AT BEDSIDE, CALL LIGHT IN REACH.
--- NOTE | 2020-12-31 13:06 | NUR ---
Nutrition Follow-up: Poor appetite/PO intake; did not eat breakfast this AM. C/o nausea without vomiting. Drinking some Ensure. Awaiting rehab placement. Diet: Cardiac, Ensure TID PO intake: 6% avg x 4 meals Wt: 170# (12/29) Last BM: 12/31 Labs noted: K+ 3.0, Glu 128, Alb 2.5 Meds noted: Florajen, Linzess, Protonix, NS @ 100, electrolyte protocol -Encourage PO intake and honor food preferences within diet restrictions. -Need new wt. -RD will follow up within 3 days.
--- NOTE | 2020-12-31 17:41 | NUR ---
PERCOCET GIVEN FOR PAIN LEVEL OF 6/10. NEW 22G IV STARTED TO RT HAND. PT ALL NEEDS MET, CALL LIGHT IN REACH.
--- NOTE | 2020-12-31 19:27 | NUR ---
RECEIVED LAYING IN BED WITH EYES CLOSED. AROUSES WITH VERBAL STIMULI. IV TO RT HAND WITH NS AT 100CC/HR. TELEMETRY IN PLACE. DENIES ANY NEEDS AT THIS TIME.
[2020-12-31 20:00] VITALS: BP 141/78
[2021-01-01] VITALS: BP 138/58
[2021-01-01 04:00] VITALS: BP 178/75
[2021-01-01 05:18] LABS: BASOPHILS 0.2 % (0-2); EOSINOPHILS 4.6 % (0-7); HEMOGLOBIN 10.6 g/dL (12-16); IMMATURE GRANULOCYTES 0.2 % (0-5); LYMPHOCYTE ABS# 1.01 10x3/uL (1.18-3.74); MCH 27.4 pg (26.0-34.0); MCHC 33.1 g/dL (31.0-37.0); MCV 82.7 fL (80.0-100.0); MEAN PLATELET VOLUME 8.7 fL (7.4-10.4); MONOCYTES 8.9 % (2-11); NEUTROPHIL ABS# 2.95 10x3/uL (1.56-6.13); NEUTROPHILS 64.1 % (40-80); PLATELET COUNT 165 10x3/uL (130-400); RBC 3.87 10x6/uL (4.00-5.40); RDW 14.7 % (11.5-14.5); WBC 4.6 10x3/uL (4.8-10.8)
[2021-01-01 05:39] LABS: ALBUMIN 2.3 g/dL (3.4-5.0); ALKALINE PHOSPHATASE 74 U/L (30-120); BILIRUBIN - TOTAL 0.44 mg/dL (0.2-1.3); CALC OSMOLALITY 287 mosm/kg (275-300); CALCIUM 8.8 mg/dL (8.5-10.1); CARBON DIOXIDE 28.5 mmol/L (21.0-32.0); CHLORIDE - SERUM 107 mmol/L (98-107); CREATININE - SERUM 0.7 mg/dL (0.6-1.3); GLUCOSE 116 mg/dL (74-106); POTASSIUM - SERUM 3.1 mmol/L (3.5-5.1); PROTEIN - SERUM 6.4 g/dL (6.4-8.2); SODIUM 145 mmol/L (136-145); UREA NITROGEN 7 mg/dL (7-18); eGFR NON AFRICAN AMERICAN 88 mL/min (90-120)
[2021-01-01 05:42] LABS: ALT (SGPT) 10 U/L (10-68)
--- NOTE | 2021-01-01 07:25 | NUR ---
AM ROUNDING DONE WITH PATIENT LAYING ON RIGHT SIDE WITH COMPLAINTS OF PAIN TO HER BACK /10. PERCOCET GIVEN ORDERED. ON ROOM AIR. ON HEART MONITOR. RIGHT HAND PIV SEEN WITH NS INFUSING AT 100 CC/HR. ON OVEMNOX. BSC AT BEDSIDE. CALL LIGHT IN USE. ON EP, K+ IS 3.1. THIS WAS COVERED AND LAB IS ORDERED.
[2021-01-01 08:00] VITALS: BP 182/79
[2021-01-01] MEDS ORDERED: FLAGYL500 MG PO (10:59)
[2021-01-01] MEDS ORDERED: LEVOFLOXACIN500 MG PO (11:00)
--- NOTE | 2021-01-01 11:08 | MORECARE ---
CASE MANAGEMENT DISCHARGE SUMMARY PATIENT: FLORENTIN PANTOJA UNIT: [id number] ADM DATE: 12/28/20 AGE: 70 : 50 SEX: F ROOM/BED: D.2119 AUTHOR: SANTINODOC PHYSICIAN: REFERRING PHYSICIAN: ISAEL MCDONALD MD DATE OF SERVICE: 01/01/21 Case Management Discharge Planning Summary DCP REVIEW SUMMARY ANTICIPATED D/C DATE: EXPECTED LOS : CASE STATUS: DCP Initiated INITIAL REVIEW: 01/01/2021 INITIAL REVIEWER: Rochelle Spaulding FINAL DISCHARGE DISPOSITION: : FINAL REVIEWER: FINAL REVIEW DATE: DCP Focus Questions & Answers QUESTION: ANSWER : PATIENT: FLORENTIN PANTOJA ENCOUNTER: [id number] MEDICAL RECORD#: [id number] ADMISSION DATE: 12/28/2020 DISCHARGE DATE: ATTENDING MD: AMPARO: AGE: 70 MARITAL STATUS: M DC PLAN ID: [id number] FACILITY: [facility] PRINTED ON: 01/01/21 11:08 CT All edits/amendments must be made on the electronic document DICTATION DATE: 01/01/211107 HOME HEALTH CAREGIVER: DM 01/01/21 1108 RPT#: [id number] DC DATE: STATUS: ADM IN [facility] [address] [place] [address] END OF REPORT
--- NOTE | 2021-01-01 11:20 | MORECARE ---
CASE MANAGEMENT DISCHARGE SUMMARY PATIENT: FLORENTIN CLARK UNIT: [id number] ADM DATE: 12/28/20 AGE: 70 : 50 SEX: F ROOM/BED: D.4188 AUTHOR: EZRA DE PHYSICIAN: REFERRING PHYSICIAN: ISAEL MCDONALD MD DATE OF SERVICE: 01/01/21 Case Management Discharge Planning Summary COMMENTS ENTERED DATE: 01/01/21 11:15 CT COMMENT TYPE: Discharge Planning REVIEWER: Rochelle Spaulding CM received discharge orders. She states she lives with her in a safe environment. She would like to go to inpatient rehab at [facility] [place]. She has been accepted today. She states Dr. Arrington is her PCP. She is independent at home, but states she does have a wheelchair and a walker if needed (from her ). DC today to inpatient rehab. DCP REVIEW SUMMARY ANTICIPATED D/C DATE: EXPECTED LOS : CASE STATUS: DCP Initiated INITIAL REVIEW: 01/01/2021 INITIAL REVIEWER: Rochelle Spaulding FINAL DISCHARGE DISPOSITION: : FINAL REVIEWER: FINAL REVIEW DATE: DCP Focus Questions & Answers DCP Evaluation QUESTION: ANSWER Family / Caregiver's ability to cope with chronic illness: : a. Adequate (ability to meet patient's medical needs, ensures patient attends medical appts.) Patient gives permission to discuss discharge plans with: (name, relationship and number) : Carl Clark - SPOUSE - [phone] Patient's ability to cope with chronic illness : d. No chronic illness Patient's current cognitive status: : *Oriented to person, place, situation, time and present Patient and/or caregiver agree upon recommended discharge plan? : Yes Physical Status: : Independent with ADL's Functional screen assessment: : New onset in difficulty in gait, balance, or transfer difficulties Does the patient have the ability to pay for or attain post discharge needs / services? : Yes Living Arrangements: : Home with Spouse/Significant Other Is there a likelihood that the patient will require additional services to return to the preadmission environment? : No Equipment needed for post hospitalization: : None Functional screen comments: : Weak, inpatient rehab screen Baseline cognitive status: : *Oriented to person, place, situation, time and present Results of this evaluation have been discussed with: : Patient Medication Management: : Patient states can afford medications Pharmacy name(s): : [facility] [address] Does Patient have transportation to get home and to follow-up medical appointments when discharged from the hospital? : Yes Would patient like to participate in any Care Coordination programs (if applicable): : Not applicable Does the patient have electricity at home? : Yes Does the patient have running water in their house? : Yes Equipment in use: : Other Equipment in use: : Shower Chair Equipment in use: : Walker - Rolling Equipment in use: : Wheelchair Other Equipment comments: : Elevated toilet seat Hand held shower head Mental health screen: : No mental health history Abuse/Neglect: : None Resources / Services in place: : None DCP Re-evaluation QUESTION: ANSWER Would patient like to participate in any Care Coordination programs (if applicable): : Not applicable PATIENT: FLORENTIN CLARK ENCOUNTER: [id number] MEDICAL RECORD#: [id number] ADMISSION DATE: 12/28/2020 DISCHARGE DATE: ATTENDING MD: AMPARO: AGE: 70 MARITAL STATUS: M DC PLAN ID: [id number] FACILITY: [facility] PRINTED ON: 01/01/21 11:20 CT All edits/amendments must be made on the electronic document DICTATION DATE: 01/01/21 112 GLOBAL CMO: DEN 01/01/21 112 RPT#: [id number] DC DATE: STATUS: ADM IN [facility] [address] [place] [address] END OF REPORT
--- NOTE | 2021-01-01 11:21 | NUR ---
POTASSIUM IS 3.3, WILL COVER PER PROTOCOL.
--- NOTE | 2021-01-01 11:43 | NUR ---
REPORT CALLED TO [facility] IN REHAB. PATIENT IS IN SHOWER AT THIS TIME.
--- NOTE | 2021-01-01 13:26 | NUR ---
VERBAL AND WRITTEN DISCHARGE INSTRUCTIONS GIVEN TO PATIENT. HEART MONITOR TURNED IN. SALINE LOCK REMOVED WITH CATH TIP INTACT. DISCHARGED TO REHAB VIA WHEELCHAIR.
--- NOTE | 2021-01-01 13:33 | MORECARE ---
CASE MANAGEMENT DISCHARGE SUMMARY PATIENT: FLORENTIN CLARK UNIT: [id number] ADM DATE: 12/28/20 AGE: 70 : 50 SEX: F ROOM/BED: D.6476 AUTHOR: EZRA DE PHYSICIAN: REFERRING PHYSICIAN: ISAEL MCDONALD MD DATE OF SERVICE: 01/01/21 Case Management Discharge Planning Summary COMMENTS ENTERED DATE: 01/01/21 11:15 CT COMMENT TYPE: Discharge Planning REVIEWER: Rochelle Spaulding CM received discharge orders. She states she lives with her in a safe environment. She would like to go to inpatient rehab at [facility] [place]. She has been accepted today. She states Dr. Arrington is her PCP. She is independent at home, but states she does have a wheelchair and a walker if needed (from her ). DC today to inpatient rehab. DCP REVIEW SUMMARY ANTICIPATED D/C DATE: EXPECTED LOS : CASE STATUS: DCP Initiated INITIAL REVIEW: 01/01/2021 INITIAL REVIEWER: Rochelle Spaulding FINAL DISCHARGE DISPOSITION: : FINAL REVIEWER: FINAL REVIEW DATE: DCP Focus Questions & Answers DCP Evaluation QUESTION: ANSWER Family / Caregiver's ability to cope with chronic illness: : a. Adequate (ability to meet patient's medical needs, ensures patient attends medical appts.) Patient gives permission to discuss discharge plans with: (name, relationship and number) : Carl Clark - SPOUSE - [phone] Patient's ability to cope with chronic illness : d. No chronic illness Patient's current cognitive status: : *Oriented to person, place, situation, time and present Patient and/or caregiver agree upon recommended discharge plan? : Yes Physical Status: : Independent with ADL's Functional screen assessment: : New onset in difficulty in gait, balance, or transfer difficulties Does the patient have the ability to pay for or attain post discharge needs / services? : Yes Living Arrangements: : Home with Spouse/Significant Other Is there a likelihood that the patient will require additional services to return to the preadmission environment? : No Equipment needed for post hospitalization: : None Functional screen comments: : Weak, inpatient rehab screen Baseline cognitive status: : *Oriented to person, place, situation, time and present Results of this evaluation have been discussed with: : Patient Medication Management: : Patient states can afford medications Pharmacy name(s): : [facility] [address] Does Patient have transportation to get home and to follow-up medical appointments when discharged from the hospital? : Yes Would patient like to participate in any Care Coordination programs (if applicable): : Not applicable Does the patient have electricity at home? : Yes Does the patient have running water in their house? : Yes Equipment in use: : Other Equipment in use: : Shower Chair Equipment in use: : Walker - Rolling Equipment in use: : Wheelchair Other Equipment comments: : Elevated toilet seat Hand held shower head Mental health screen: : No mental health history Abuse/Neglect: : None Resources / Services in place: : None DCP Re-evaluation QUESTION: ANSWER Would patient like to participate in any Care Coordination programs (if applicable): : Not applicable PATIENT: FLORENTIN CLARK ENCOUNTER: [id number] MEDICAL RECORD#: [id number] ADMISSION DATE: 12/28/2020 DISCHARGE DATE: 01/01/2021 ATTENDING MD: AMPARO: [id number]-Suraj-07 AGE: 70 MARITAL STATUS: M DC PLAN ID: [id number] FACILITY: [facility] PRINTED ON: 01/01/21 13:33 CT All edits/amendments must be made on the electronic document DICTATION DATE: 01/01/21 133 MANUAL TRAINING TEACHER: DEN 01/01/21 133 RPT#: [id number] DC DATE:01/01/21 STATUS: DIS IN [facility] [address] [place] [address] END OF REPORT
== END 2021-01-01 13:28 | DRG 690 ==
LOC: D.ER 09:02 → D.M2 11:13 → OBSVTIME 11:13 → D.M2 11:13
PROVIDERS: Emergency Medicine; Student in an Organized Health Care Education/Training Program; ADMIT Family Medicine; ATTEND Family Medicine
DX: N39.0 Urinary tract infection, site not specified (principal); E87.2 Acidosis; N17.9 Acute kidney failure, unspecified; K52.9 Noninfective gastroenteritis and colitis, unspecified; E03.9 Hypothyroidism, unspecified; J45.909 Unspecified asthma, uncomplicated; K58.9 Irritable bowel syndrome, unspecified; K21.9 Gastro-esophageal reflux disease without esophagitis; K22.70 Barrett's esophagus without dysplasia; E78.5 Hyperlipidemia, unspecified; I25.10 Atherosclerotic heart disease of native coronary artery without angina pectoris; I10 Essential (primary) hypertension

== ENCOUNTER 2021-01-01 11:32 | Inpatient (IN) | payer MEDICARE, OTHER ==
[~2021-01-01] VITALS: Ht 162.6 cm; Wt 81.6 kg
--- NOTE | ~2021-01-01 | RHP ---
PATIENT: FLORENTIN PANTOJA MEDICAL RECORD: [id number] ACCOUNT: [id number] LOCATION:[facility]1117 : 50 ADMISSION DATE: 01/01/21 REHABILITATION HISTORY AND PHYSICAL EXAMINATION POST ADMISSION PHYSICIAN EXAMINATION ADMITTING DIAGNOSIS: Urinary tract infection induced myopathy. HISTORY OF PRESENT ILLNESS: The patient is a 70-year-old female patient with complaints of weakness and body aches, began on 12/27/2020. She took Tylenol without any relief. Her symptoms were constant and moderate in severity. She was noted to have a diagnosis of UTI prior to admit. She was admitted for acute UTI, acute lactic acidosis, acute kidney injury colitis. The patient on 12/27/[address] of the abdomen and pelvis, which showed mucosal thickening within the cecum in the transverse area related to her colitis. She remained in the hospital. She was placed on IV antibiotic therapy. She had some hypoxia requiring supplemental O2. Pain control was required as well as a constant supervision prior to her hospital admit. She did not require O2. She functioned independently at home without any assistance device. Part of her ADLs include driving and providing care for her spouse who is also ill. Now, she is requiring moderate assist for ADLs and rolling walker. She will require inpatient therapy to get back to her prior level of functioning. COMORBIDITIES: Include irritable bowel syndrome, pulmonary nodules, generalized weakness, aches. She has got acute kidney injury, coronary artery disease, gastroesophageal reflux disease, hyperlipidemia, hypothyroidism, lactic acidosis, rheumatoid arthritis and acute UTI. PAST MEDICAL HISTORY: Significant for hypothyroidism, asthma, Navarro's esophagitis, irritable bowel syndrome, pulmonary nodules, hyperlipidemia, coronary artery disease and gastroesophageal reflux disease. PAST SURGICAL HISTORY: Includes cholecystectomy, appendectomy, partial hysterectomy. She has had carpal tunnel repair and cardiac stent placement. ALLERGIES: ANY TYPE OF NSAID, DILAUDID, TOPAMAX, AND DEMEROL. CURRENT MEDICATIONS: Include Floranex one cap daily, Zoloft 100 mg daily, Crestor 20 mg daily, Levaquin she has got 500 mg daily, aspirin chewable 81 mg daily, Linzess 290 mcg daily, levothyroxine 88 mcg daily, Flagyl 500 mg every 8 hours, diclofenac 50 mg every 8 hours, Mucinex 600 mg b.i.d., Protonix 40 mg b.i.d., clonazepam 1 mg at bedtime, Ventolin updrafts and oxycodone 10/325 one tab every 4 hours p.r.n. pain. HABITS: No alcohol or tobacco use. FAMILY HISTORY: Noncontributory. SOCIAL HISTORY: The patient hopes to return back home and get back to her prior level of functioning to take care of her loved ones. REVIEW OF SYSTEMS: GENERAL: Does complain of weakness and fatigue. HEENT: Denies cold, cough or congestion. CARDIOVASCULAR: Denies any chest pain. HISTORY AND PHYSICAL [id number] FLORENTIN PANTOJA LUNGS: Denies any shortness of breath. ABDOMEN: Does complain of constipation, which is not new and pain down to her urinary tract. PHYSICAL EXAMINATION: VITAL SIGNS: Stable. She is afebrile. GENERAL: A somewhat obese female in no acute distress upon exam. HEENT: Normocephalic and atraumatic. Mucosa moist. NECK: Supple without adenopathy. LUNGS: Clear in the upper maya. No wheezing or rales. HEART: Regular rate and rhythm. No murmurs, rubs or gallops. ABDOMEN: Soft, nondistended. Positive bowel sounds times 4. EXTREMITIES: No clubbing, cyanosis or edema. NEUROLOGIC: She does have weakness in the proximal muscles of her thighs. She does have some truncal instability. LABORATORY DATA: Her white count is 4.6, her H and H are 10 and 32 and platelet count was noted to be 165. Chemistry showed sodium 145, potassium 3.3, BUN and creatinine of 7 and 0.7, blood sugar is noted to be 116. ASSESSMENT: This is a 70-year-old female patient admitted to rehab with a working diagnosis of urinary tract infection induced myopathy. The patient has potential to make improvement. We instituted the following multidisciplinary therapies including, not limited to physical, occupational, respiratory, speech, nutritional services, prosthetics and orthotics. Given her complex medical condition and risk of further medical complications, rehabilitation services cannot be provided at a low level of care such as longterm facility. PLAN: 1. Admit to [facility] for inpatient therapy to include the following disciplines; A. Physical therapy to improve gait, all transfer skills and bed mobility to a modified independent level. B. Occupational therapy to improve activities of daily living. C. Case management to help with discharge planning and placement options. D. Nutrition to assist with nutritional needs. E. Rehabilitation nursing to assist in monitoring the patient's underlying medical condition and to assist with any type of bowel or bladder management. 2. The patient's current medication and medical care will be continued. 3. I am going to go ahead and replace her potassium and repeat this lab work on Thursday. 4. We will discuss with care team and see her today at noon. 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
[~2021-01-01 11:32] MED LIST changes: +FLAGYL500 MG PO; +LEVOFLOXACIN500 MG PO
[2021-01-01 16:39] VITALS: BP 186/86; BMI 30.9
--- NOTE | 2021-01-01 18:55 | NUR ---
BEDSIDE REPORT COMPLETE. RECEIVED PT LYING IN BED ON RIGHT SIDE. ALERT AND ORIENTED X4. C/O LEFT SHOULDER 3/10 DEEP ACHING PAIN. PAIN MEDICATION ADMININSTERED APPROX HOUR AGO. NO IV OR OXYGEN NOTED. DENIES ANY OTHER NEEDS. CALL LIGHT AND WATER WITHIN REACH. DIOGENES ALARM ON. CPOC
[2021-01-01 20:28] VITALS: BP 179/84
--- NOTE | 2021-01-02 02:14 | NUR ---
PT LYING IN BED ON RIGHT SIDE EYES CLOSED RESTING. RR EVEN AND UNLABORED. DIOGENES ALARM ON
--- NOTE | 2021-01-02 06:27 | NUR ---
PT LYING IN BED ON RIGHT SIDE EYES CLOSED RESTING. NO ACUTE CHANGES IN CONDITION THIS SHIFT. DIOGENES ALARM ON.
[2021-01-02 07:38] VITALS: BP 152/73
--- NOTE | 2021-01-02 08:00 | NUR ---
SHIFT ASSMT COMPLETED.
[2021-01-02 15:00] VITALS: Ht 162.6 cm; Wt 81.6 kg
--- NOTE | 2021-01-02 16:17 | NUR ---
CARE TEAM MEETING: PATIENT IS NEW TO UNIT AND WILL BE RA AT NEXT MEETING. PATIENT PCP IS DR. LADD. WILL CONTINUE TO FOLLOW WITH PATIENT.
--- NOTE | 2021-01-02 19:56 | NUR ---
AWAKE AND ALERT. RESTING IN BED WITH RESPIRAITONS UNLABORED. NO DISTRESS NOTED. CALL LIGHT IN REACH. CALL LIGHT IN REACH.
[2021-01-02 20:30] VITALS: BP 114/58
--- NOTE | 2021-01-03 05:44 | NUR ---
QUIET HOURS. HAS HAD SOME BACK AND LEG PAIN THIS SHIFT. UP FOR SHOWER PER HER REQUEST SHE THINKS THIS WILL RELIEVE THIS PAIN. WILL MONITOR.
[2021-01-03 08:14] VITALS: BP 149/65
--- NOTE | 2021-01-03 10:29 | NUR ---
PATIENT DISCHARGING HOME WITH FAMILY TODAY. [facility] WILL RESUME THERAPY AT HOME. NO COMPARE DATA REVIEWED. FABIO SIGNED, IMM SERVED AND EXPLAINED. ONE GIVEN TO PATIENT AND ONE GIVEN TO PATIENT.DR. KELLER OFFICE WILL CALL PATIENT WITH AN APPOINTMENT. DISCHARGE INSTRUCTIONS FAXED TO PCP, HOME HEALTH AND REVIEWED WITH PATIENT.
== END 2021-01-03 16:13 | disposition home health service (06) | DRG 92 ==
LOC: D.REHAB 11:32
PROVIDERS: ADMIT Emergency Medicine; ATTEND Emergency Medicine
DX: G72.89 Other specified myopathies (principal); N39.0 Urinary tract infection, site not specified; N17.9 Acute kidney failure, unspecified; E87.2 Acidosis; K58.9 Irritable bowel syndrome, unspecified; R91.1 Solitary pulmonary nodule; R53.1 Weakness; K21.9 Gastro-esophageal reflux disease without esophagitis; I25.10 Atherosclerotic heart disease of native coronary artery without angina pectoris; E78.5 Hyperlipidemia, unspecified; E03.9 Hypothyroidism, unspecified; M06.9 Rheumatoid arthritis, unspecified; J45.909 Unspecified asthma, uncomplicated

== ENCOUNTER 2021-01-19 12:40 | Emergency (ER) | payer MEDICARE, OTHER ==
[~2021-01-19] VITALS: Ht 162.6 cm; Wt 73.6 kg
[2021-01-19 12:51] VITALS: BP 169/73; Ht 162.6 cm; Wt 73.6 kg
[2021-01-19 13:13] LABS: BASOPHILS 0.4 % (0-2); HEMATOCRIT 39.4 % (36.0-48.0); HEMOGLOBIN 13.3 g/dL (12-16); LYMPHOCYTES 14.5 % (15-50); MCH 27.6 pg (26.0-34.0); MCHC 33.8 g/dL (31.0-37.0); MCV 81.8 fL (80.0-100.0); MONOCYTES 5.9 % (2-11); NEUTROPHILS 77.2 % (40-80); PLATELET COUNT 184 10x3/uL (130-400); RBC 4.82 10x6/uL (4.00-5.40); WBC 10.9 10x3/uL (4.8-10.8)
[2021-01-19 13:35] LABS: CALC OSMOLALITY 281 mosm/kg (275-300); CALCIUM 8.8 mg/dL (8.5-10.1); CARBON DIOXIDE 25.7 mmol/L (21.0-32.0); CHLORIDE - SERUM 104 mmol/L (98-107); CREATININE - SERUM 0.7 mg/dL (0.6-1.3); GLUCOSE 126 mg/dL (74-106); POTASSIUM - SERUM 3.3 mmol/L (3.5-5.1); SODIUM 141 mmol/L (136-145); UREA NITROGEN 10 mg/dL (7-18); eGFR NON AFRICAN AMERICAN 88 mL/min (90-120)
[2021-01-19 13:40] LABS: ALBUMIN 3.6 g/dL (3.4-5.0); ALKALINE PHOSPHATASE 133 U/L (30-120); ALT (SGPT) 30 U/L (10-68); PROTEIN - SERUM 7.4 g/dL (6.4-8.2)
[2021-01-19 14:31] LABS: BILIRUBIN NEGATIVE (NEGATIVE); KETONE NEGATIVE (NEGATIVE); NITRITE NEGATIVE (NEGATIVE); UROBILINOGEN NORMAL mg/dL (< 2)
[2021-01-19] MEDS ORDERED: HYDROCODON-ACE1 EAC7 PO (15:26)
== END 2021-01-19 15:44 | disposition home or self-care (01) ==
LOC: D.ER 12:40
PROVIDERS: Family Medicine
DX: R10.9 Unspecified abdominal pain (principal); G89.29 Other chronic pain; E87.6 Hypokalemia; R79.89 Other specified abnormal findings of blood chemistry; M54.5 Low back pain; E78.5 Hyperlipidemia, unspecified; I10 Essential (primary) hypertension; K21.9 Gastro-esophageal reflux disease without esophagitis